=== PATIENT | male | born 1965 | race African-American/Black ===

== ENCOUNTER 2020-04-13 16:37 | Inpatient (IN) | payer OTHER ==
[2020-04-13] MEDS ORDERED: dilTIAZem HCL 125 MG/25 ML - 25 ML VIAL ONE (16:44)
--- NOTE | 2020-04-13 16:55 | PDOC ---
Attending Attestation - Resident Resident Name: Mary Garrett - HPI HPI: 04/13/20 18:18 Pt presents to the ED complaining of palpitations and shortness of breath that began shortly after smoking hookah. Also complaining of chest heaviness. Found to be in rapid afib by EMS, given cardizem IV with resolution of his symptoms. - Physicial Exam PE: 04/13/20 18:24 Agree with resident exam. pateint is alert and oriented x 3 and in no acute distress. CV: irregularly irregular, no murmurs. pulm: CTA b/l abdomen: soft, non tender, non distended without guarding or rebound. - Medical Decision Making 04/13/20 18:25 Pt presents to the ED complaining of palpitations and shortness of breath. Found to be in rapid A fib, rate controlled with cardizem by EMS. Differential includes idiopathic a fib, carbon monoxide poisoning, ACS, less likely anemia. Will check labs including carboxyhemoglobin level, treat with PO cardizem and reassess. Discharge - Discharge Information Problems reviewed: Yes Clinical Impression/Diagnosis: Atrial fibrillation, Lightheaded Condition: Stable - Follow up/Referral - Patient Discharge Instructions - Post Discharge Activity
[2020-04-13] MEDS ORDERED: dilTIAZem HCL 30 MG TABLET PO ONE (17:37)
[2020-04-13] MEDS ORDERED: dilTIAZem HCL 30 MG TABLET ONE (18:27)
[2020-04-13 18:53] LABS: BASO % 0.3 % (0-2.0); EOS % 0.3 % (0-4.5); HEMATOCRIT 48.7 % (35.4-49); HEMOGLOBIN 16.2 GM/dL (11.7-16.9); LYMPH % 21.9 % (8-40); MCH 30.1 pg (25.7-33.7); MCHC 33.2 g/dl (32.0-35.9); MEAN CELL VOLUME 90.6 fl (80-96); MONO % 5.9 % (3.8-10.2); NEUT % 71.6 % (42.8-82.8); PLATELET COUNT 246 K/MM3 (134-434); RBC 5.37 M/mm3 (4.00-5.60); RDW 15.7 % (11.9-15.9); WHITE BLOOD COUNT 12.1 K/mm3 (4.0-10.0)
[2020-04-13 19:01] LABS: INR 1.12 (0.83-1.09); PROTHROMBIN TIME (PATIENT) 13.2 SEC (9.7-13.0)
[2020-04-13 19:04] LABS: ACTIVATED PTT 31.1 SECONDS (25.2-36.5)
--- NOTE | 2020-04-13 19:30 | PDOC ---
*Physical Exam - Vital Signs Last Vital Signs Temp Pulse Resp BP Pulse Ox 98.0 F 74 16 115/75 96 04/13/20 16:49 04/13/20 16:49 04/13/20 16:49 04/13/20 16:49 04/13/20 16:49 - Physical Exam 04/13/20 19:28 Pt signed out to us; Rapid afib; now converted to sinus rhythm/ Pt has a hx of DM and HTN and high cholesterol. He has no chest pain, only palpitations. He was smoking hookah. ED Treatment Course - LABORATORY CBC & Chemistry Diagram: 04/14/20 05:50 04/14/20 05:50 - ADDITIONAL ORDERS Additional order review: Laboratory Results 04/13/20 18:19 PT with INR 13.20 H INR 1.12 H PTT (Actin FS) 31.1 04/13/20 18:19 RBC 5.37 MCV 90.6 MCHC 33.2 RDW 15.7 MPV 9.0 D Neutrophils % 71.6 Lymphocytes % 21.9 Monocytes % 5.9 Eosinophils % 0.3 Basophils % 0.3 - Medications Given in the ED: ED Medications Discontinued Medications Generic Name Dose Route Start Last Admin Trade Name Freq PRN Reason Stop Dose Admin Diltiazem HCl 30 mg 04/13/20 17:37 04/13/20 18:36 Cardizem - PO 04/13/20 17:38 30 mg ONCE ONE Administration Medical Decision Making - Medical Decision Making 04/15/20 05:49 P wll be admitted, as his chiropractic physician agrees that monitoring is prudent Discharge - Discharge Information Problems reviewed: Yes Clinical Impression/Diagnosis: Atrial fibrillation, Lightheaded Condition: Improved Disposition: HOME - Follow up/Referral - Patient Discharge Instructions - Post Discharge Activity
[2020-04-13 19:35] LABS: ALBUMIN 3.7 g/dl (3.4-5.0); BILIRUBIN,TOTAL 0.4 mg/dL (0.2-1); BLOOD UREA NITROGEN 11.4 mg/dL (7-18); CALCIUM 9.4 mg/dL (8.5-10.1); MAGNESIUM 2.3 mg/dL (1.8-2.4); TOT PROT 7.2 g/dl (6.4-8.2)
[2020-04-13] MEDS ORDERED: ACETAMINOPHEN 325 MG TABLET (FP) PO ONE (19:37)
[2020-04-13] MEDS ORDERED: ACETAMINOPHEN 325 MG TABLET (FP) ONE (19:40)
[2020-04-13 19:44] LABS: ARTERIAL BLD GAS O2 SATURATION 94.8 mmHg (95-98); ARTERIAL BLOOD GAS BASE EXCESS -3.8 mmol/L (-2-2); ARTERIAL BLOOD GAS pH 7.396 (7.350-7.450)
--- NOTE | 2020-04-13 19:57 | PDOC ---
History of Present Illness - General Chief Complaint: Palpitations Stated Complaint: Irregular Heart Beat Time Seen by Provider: 04/13/20 16:40 - History of Present Illness Initial Comments: 04/13/20 19:50 HPI: 54 y/o M with hx of HTN, HLD, DM BIBEMS with new onset AFib. Patient reports he was at home smoking hookah and hanging out on his couch and took a nap. Around 3:30pm he woke up and felt LH, palpitations, and SOB. He tried to get up and eat food, but his symptoms persisted and called EMS. He was found to have HR 150s- 180s and cardiac nurse practitioner found AFib with RVR. He was given 25mg diltiazim and HR improved to 80s-90s. His SOB and palp resolved but LH persisted. Here patient's HR was 80s-110s. He denies any ADAM, chest pain, abd pain, n/v, dysuria, diarrhea, recent drug use. Reports he has never has these symptoms before. PMHx: as noted above ROS: as noted SHx: +tobacco use; no alcohol use; no rec drugs Allergies: NKDA ROS: GENERAL/CONSTITUTIONAL: No fever or chills. No weakness. HEAD, EYES, EARS, NOSE AND THROAT: No change in vision. No ear pain or discharge. No sore throat. CARDIOVASCULAR: No chest pain; +shortness of breath RESPIRATORY: No cough, wheezing, or hemoptysis. GASTROINTESTINAL: No nausea, vomiting, diarrhea or constipation. GENITOURINARY: No dysuria, frequency, or change in urination. MUSCULOSKELETAL: No joint or muscle swelling or pain. No neck or back pain. SKIN: No rash NEUROLOGIC: No headache, vertigo, loss of consciousness, or change in strength/sensation. ENDOCRINE: No increased thirst. No abnormal weight change HEMATOLOGIC/LYMPHATIC: No anemia, easy bleeding, or history of blood clots. ALLERGIC/IMMUNOLOGIC: No hives or skin allergy. PE: GENERAL: Awake, alert, and fully oriented, no acute distress HEAD: No signs of trauma, normocephalic, atraumatic EYES: EOMI, sclera anicteric, conjunctiva clear ENT: Auricles normal inspection, hearing grossly normal, nares patent, o ropharynx clear without exudates. Moist mucosa NECK: Normal ROM, no lymphadenopathy LUNGS: No increased work of breathing, symmetrical chest rise, clear to auscultation bilaterally, no wheezes, crackles or rhonchi HEART: tachycardic, irregular rhythm ABDOMEN: Soft, nondistended, nontender. Reducible umbilical hernia. No guarding, no rebound. No masses. No CVAT MUSCULOSKELETAL: FROM NEUROLOGICAL: Cranial nerves II through XII grossly intact. Normal speech, normal gait, no focal sensorimotor deficits SKIN: Warm, Dry, normal turgor, no rashes or lesions noted Past History - Medical History Allergies/Adverse Reactions: Allergies Allergy/AdvReac Type Severity Reaction Status Date / Time No Known Allergies Allergy Verified 12/22/15 12:14 Home Medications: Ambulatory Orders metFORMIN HCL [Glucophage -] 500 mg PO DAILY 07/18/13 COPD: No Diabetes: Yes HTN: Yes Hypercholesterolemia: Yes - Surgical History Orthopedic Surgery: Yes (Back, Bilateral Hips) - Immunization History Immunization Up to Date: Yes - Psycho-Social/Smoking History Smoking Status: No Smoking History: Unknown if ever smoked Have you smoked in the past 12 months: Yes Number of Cigarettes Smoked Daily: 5 'Breaking Loose' booklet given: 07/18/13 - Substance Abuse Hx (Audit-C & DAST Scrn) How often the patient has a drink containing alcohol: Never Score: In Men: 4 or > Positive; In Women: 3 or > Positive: 0 Screen Result (Pos requires Nsg. Audit-10AR): Negative *Physical Exam - Vital Signs Last Vital Signs Temp Pulse Resp BP Pulse Ox 98.0 F 74 16 115/75 96 04/13/20 16:49 04/13/20 16:49 04/13/20 16:49 04/13/20 16:49 04/13/20 16:49 ED Treatment Course - LABORATORY CBC & Chemistry Diagram: 04/13/20 18:19 04/13/20 18:19 - ADDITIONAL ORDERS Additional order review: Laboratory Results 04/13/20 04/13/20 04/13/20 18:30 18:19 18:19 PT with INR INR PTT (Actin FS) Anticoagulation Therapy No Result Required. Puncture Site No Result Required. Patient Temperature No Result Required. ABG pH 7.396 ABG pCO2 33.30 L ABG pO2 73.0 L ABG HCO3 20.0 L ABG O2 Sat (Measured) 94.8 L ABG O2 Content No Result Required. ABG Base Excess -3.8 L Julio C Test No Result Required. Patient On Oxygen No Result Required. O2 Delivery Device No Result Required. Oxygen Flow Rate No Result Required. Vent Mode No Result Required. Vent Rate No Result Required. Mechanical Rate No Result Required. PEEP No Result Required. Pressure Support Vent No Result Required. Sodium 144 Potassium 4.0 Chloride 112 H Carbon Dioxide 23 Anion Gap 9 BUN 11.4 Creatinine 1.0 Est GFR (CKD-EPI)AfAm 99.85 Est GFR (CKD-EPI)NonAf 86.15 Random Glucose 113 H Calcium 9.4 Magnesium 2.3 Total Bilirubin 0.4 AST 20 ALT 34 Alkaline Phosphatase 95 Creatine Kinase 230 Troponin I 0.02 Total Protein 7.2 Albumin 3.7 TSH 1.04 04/13/20 18:19 PT with INR 13.20 H INR 1.12 H PTT (Actin FS) 31.1 Anticoagulation Therapy Puncture Site Patient Temperature ABG pH ABG pCO2 ABG pO2 ABG HCO3 ABG O2 Sat (Measured) ABG O2 Content ABG Base Excess Julio C Test Patient On Oxygen O2 Delivery Device Oxygen Flow Rate Vent Mode Vent Rate Mechanical Rate PEEP Pressure Support Vent Sodium Potassium Chloride Carbon Dioxide Anion Gap BUN Creatinine Est GFR (CKD-EPI)AfAm Est GFR (CKD-EPI)NonAf Random Glucose Calcium Magnesium Total Bilirubin AST ALT Alkaline Phosphatase Creatine Kinase Troponin I Total Protein Albumin TSH 04/13/20 18:19 RBC 5.37 MCV 90.6 MCHC 33.2 RDW 15.7 MPV 9.0 D Neutrophils % 71.6 Lymphocytes % 21.9 Monocytes % 5.9 Eosinophils % 0.3 Basophils % 0.3 - RADIOLOGY Radiology Studies Ordered: Category Date Time Status CXRPORT [CHEST X-RAY PORTABLE*] [RAD] Stat Radiology 04/13/20 16:49 Ordered - Medications Given in the ED: ED Medications Discontinued Medications Generic Name Dose Route Start Last Admin Trade Name Freq PRN Reason Stop Dose Admin Acetaminophen 650 mg 04/13/20 19:37 04/13/20 19:42 Tylenol - PO 04/13/20 19:38 650 mg ONCE ONE Administration Diltiazem HCl 30 mg 04/13/20 17:37 04/13/20 18:36 Cardizem - PO 04/13/20 17:38 30 mg ONCE ONE Administration Medical Decision Making - Medical Decision Making 06/26/20 20:34 54 y/o M with hx of HTN, HLD, DM BIBEMS and found to be in AFib with RVR after waking up with symptoms with SOB, palp, LH. HR 80s-110s, AF. PE with irregular tachycardia. -cbc, cmp, coags, card prof, mg, tsh, abg, carboxyhb, ekg, cxr 04/13/20 20:47 ekg with AFib, no dorothy/d wbc 12, Carboxyhb 21.7 patient placed on NRB remainder of labs wnl 04/13/20 20:[address] Moreno, patient will receive 5mg apixaban patient still reporting LH will admit for tele monitoring and eval by cardio tomorrow morning continue dilt 30mg po q6 04/13/20 20:[address] kwan \ Discharge - Discharge Information Problems reviewed: Yes Clinical Impression/Diagnosis: Atrial fibrillation, Lightheaded Condition: Stable - Admission Yes - Follow up/Referral Referrals: Dede Dwyer [Non Staff, Medical] - - Patient Discharge Instructions - Post Discharge Activity
[2020-04-13] MEDS ORDERED: APIXABAN 5 MG TABLET ONE (20:37)
[2020-04-13] MEDS: APIXABAN 5 MG TABLET PO SCH (21:20)
--- NOTE | 2020-04-13 21:51 | HP ---
Admitting History and Physical - Admission Chief Complaint: Palpitations, lightheadedness, dizziness History of Present Illness: 54 y/o Male with PMhx notable for HTN, HLD, DM II, who was BIB EMS with complaints of palpitations. His symptoms began around 3:00pm at home..he admits had smoked a hookah then took a nap. Upon awakening patient felt dizziness, lightheaded along with palpitations/ dyspnea. He tried to get up and eat food, but his symptoms persisted therefore, he called EMS. He was found to have HR 150s-180s and monitoring tech found AFib with RVR. He was given 25mg diltiazim and HR improved to 80s-90s. He otherwise denies recent fevers, chills, cough, headache, chest pain, abd pain, n/v, or diarrhea. Reports he has never had these symptoms before. PMHx: as noted above ROS: as noted SHx: +tobacco use; no alcohol use; no rec drugs Allergies: NKDA ED course: EKG with AFib, no ST changes WBC=12 12, Carboxyhb 21.7 Patient placed on NRB Remainder of labs WNL History Source: Patient Limitations to Obtaining History: No Limitations - Past Medical History Cardiovascular: Yes: HTN - Smoking History Smoking history: Unknown if ever smoked Have you smoked in the past 12 months: Yes Aproximately how many cigarettes per day: 5 - Alcohol/Substance Use Hx Alcohol Use: No Home Medications - Allergies Allergies/Adverse Reactions: Allergies Allergy/AdvReac Type Severity Reaction Status Date / Time No Known Allergies Allergy Verified 12/22/15 12:14 - Home Medications Home Medications: Ambulatory Orders metFORMIN HCL [Glucophage -] 500 mg PO BID 07/18/13 Cholecalciferol (Vitamin D3) [Vitamin D3 -] 2,000 unit PO DAILY 04/13/20 Lisinopril [Zestril] 2.5 mg PO DAILY 04/13/20 Lovastatin 20 mg PO DAILY 04/13/20 Multivit-Min/FA/Lycopen/Lutein [Centrum Silver Men Tablet] 1 each PO DAILY 04/13/20 Family Medical History Family Hx Coronary Artery Disease: Grandmother (paternal) Review of Systems - Review of Systems Constitutional: reports: Weakness Eyes: reports: No Symptoms HENT: reports: No Symptoms Neck: reports: No Symptoms Cardiovascular: reports: Palpitations Respiratory: reports: No Symptoms Gastrointestinal: reports: No Symptoms Genitourinary: reports: No Symptoms Breasts: reports: No Symptoms Reported Musculoskeletal: reports: No Symptoms Integumentary: reports: No Symptoms Neurological: reports: Dizziness Endocrine: reports: No Symptoms Hematology/Lymphatic: reports: No Symptoms Psychiatric: reports: No Symptoms Physical Examination Vital Signs: Vital Signs Temperature 98.0 F 04/13/20 16:49 Pulse Rate 74 04/13/20 16:49 Respiratory Rate 16 04/13/20 16:49 Blood Pressure 115/75 04/13/20 16:49 O2 Sat by Pulse Oximetry (%) 96 04/13/20 16:49 Constitutional: Yes: Well Nourished, No Distress Eyes: Yes: WNL, Conjunctiva Clear, EOM Intact HENT: Yes: WNL, Atraumatic, Normocephalic Neck: Yes: WNL Cardiovascular: Yes: WNL, Pulse Irregular Respiratory: Yes: WNL, Regular, CTA Bilaterally Gastrointestinal: Yes: WNL, Normal Bowel Sounds, Soft Renal/: Yes: WNL Musculoskeletal: Yes: WNL Extremities: Yes: WNL Edema: No Peripheral Pulses WNL: No Peripheral Pulses: Left Doralis Pedis: 2+, Right Dorsalis Pedis: 2+ Integumentary: Yes: WNL Neurological: Yes: WNL, Alert, Oriented ...Motor Strength: WNL Psychiatric: Yes: WNL, Alert, Oriented Labs: CBC, BMP 04/13/20 18:19 04/13/20 18:19 Imaging - Results Chest X-ray: Pending (No acute infiltrate) Assessment/Plan 54 y/o Male with PMhx notable for HTN, HLD, & DM II, who was BIB EMS with complaints of lightheaded/palpitations, and dyspnea x several hours. Found to have new onset rapid atrial fibrillation. ED course: EKG with AFib, no ST changes WBC=12 12, Carboxyhb 21.7 Patient placed on NRB Remainder of labs wnl Patient was given cardizem 30mg PO, and eliquis 5mg PLAN # New onset atrial fibrillation - Admit to monitored bed - Heart rate improved s/p PO cardizem in ED - Appreciate cardiology input - Now on cardizem 30mg Q6H - Recommend eliquis 5mg BID For AC - Trend cardiac enzymes / lipid panel in AM - TSH ok - Send for 2D ECHO # HTN/hyperlipidemia - BP optimal monitor - Resume home meds lisinopril, & statin # DM II - Hold metformin while in the acute care setting - ISS, monitor accuchecks - check HgbA1c #DVT prophylaxis - Eliquis as noted above Visit type - Emergency Visit Emergency Visit: Yes ED Registration Date: 04/13/20 Care time: The patient presented to the Emergency Department on the above date and was hospitalized for further evaluation of their emergent condition. - New Patient This patient is new to me today: Yes Date on this admission: 04/13/20 - Critical Care Critical Care patient: No
[2020-04-14 00:59] VITALS: BMI 34.3
[2020-04-14] MEDS: dilTIAZem HCL 30 MG TABLET PO SCH ×2 (01:06→06:15)
[2020-04-14] MEDS: INSULIN SLIDING SCALE (NOVOLOG) 1 VIAL SQ SCH ×2 (06:16→13:20)
[2020-04-14] MEDS ORDERED: PT OWN MED DRAWER 7, Y5N ONE (06:44)
[2020-04-14 07:11] LABS: BASO % 0.7 % (0-2.0); EOS % 1.3 % (0-4.5); HEMATOCRIT 45.8 % (35.4-49); LYMPH % 39.1 % (8-40); MCH 29.4 pg (25.7-33.7); MCHC 32.8 g/dl (32.0-35.9); MEAN CELL VOLUME 89.9 fl (80-96); MEAN PLT VOLUME 9.1 fl (7.5-11.1); MONO % 8.8 % (3.8-10.2); NEUT % 50.1 % (42.8-82.8); PLATELET COUNT 213 K/MM3 (134-434); RBC 5.09 M/mm3 (4.00-5.60); RDW 15.3 % (11.9-15.9); WHITE BLOOD COUNT 11.1 K/mm3 (4.0-10.0)
[2020-04-14 07:22] LABS: CALCIUM 8.5 mg/dL (8.5-10.1); CREATININE 0.9 mg/dL (0.55-1.3); POTASSIUM 3.9 mmol/L (3.5-5.1)
--- NOTE | 2020-04-14 07:51 | CON.CARD ---
Consult Consult Specialty:: cardiology Reason for Consultation:: new onset AF - History of Present Illness History of Present Illness: Mr. Armstrong is a 54 yr old man with PMHHypertension, Hyperlipidemia, Diabetes mellitus; office visit for hx chest pain-->Exercise MIBI stress test negative for ischemia in February 2019; ECHO 02/2019: normal LVEF, normal chamber sizes; trace MR and TR, now admitted with palpitations, SOB and lightheadedness after smoking hookah; found to have AF with RVR. No prior diagnosis of AF. - History Source History Provided By: Medical Record - Past Medical History Cardio/Vascular: Yes: HTN Heme/Onc: No: Anemia - Alcohol/Substance Use Hx Alcohol Use: No - Smoking History Smoking history: Unknown if ever smoked Have you smoked in the past 12 months: Yes Aproximately how many cigarettes per day: 5 Home Medications - Allergies Allergies/Adverse Reactions: Allergies Allergy/AdvReac Type Severity Reaction Status Date / Time No Known Allergies Allergy Verified 12/22/15 12:14 - Home Medications Home Medications: Ambulatory Orders metFORMIN HCL [Glucophage -] 500 mg PO BID 07/18/13 Cholecalciferol (Vitamin D3) [Vitamin D3 -] 2,000 unit PO DAILY 04/13/20 Lisinopril [Zestril] 2.5 mg PO DAILY 04/13/20 Lovastatin 20 mg PO DAILY 04/13/20 Multivit-Min/FA/Lycopen/Lutein [Centrum Silver Men Tablet] 1 each PO DAILY 04/13/20 Vital Signs: Vital Signs Temperature 98 F 04/14/20 06:00 Pulse Rate 55 L 04/14/20 06:00 Respiratory Rate 20 04/14/20 06:00 Blood Pressure 100/64 04/14/20 06:00 O2 Sat by Pulse Oximetry (%) 97 04/14/20 01:03 - Other Data Labs, Other Data: CBC, BMP 04/14/20 05:50 INR, PTT INR 1.12 (0.83-1.09) H 04/13/20 18:19 Troponin, BNP 04/13/20 04/13/20 18:19 22:40 Troponin I 0.02 0.03 Troponin, BNP 04/13/20 04/13/20 18:19 22:40 Troponin I 0.02 0.03 Assessment/Plan New onset AF (with accompanying SOB and lightheadedness after smoking hookah) HTN DM HLD stress MIBI negative for ischemia 03/06. ECHO normal LVEF, normal chamber sizes 03/06 Plan: HR controlled with diltiazem; change to long-acting agent. On apixaban 5 mg bid f/u TSH Serial TNi (initial is 0.02). COVID pending
[2020-04-14 08:38] VITALS: BP 105/59; PULSE 75; TEMP 98.6
[2020-04-14] MEDS ORDERED: PATIENT'S OWN MEDICATION (NON-FORMULARY) (Multivit-Min/Fa/Lycopen/Lutein [Centrum Silver M PO SCH (10:00)
[2020-04-14] MEDS ORDERED: LISINOPRIL 5 MG TABLET (FP) PO SCH (10:00)
[2020-04-14] MEDS ORDERED: CHOLECALCIFEROL (VIT D3) 1,000 UNIT (25 MCG) TABLET PO SCH (10:00)
[2020-04-14] MEDS ORDERED: PATIENT'S OWN MEDICATION (NON-FORMULARY) (Lisinopril [Zestril] 2.5 MG) PO SCH (10:00)
[2020-04-14] MEDS ORDERED: MULTIVITAMINS (DAILY MVI) TABLET (FP) PO SCH (10:00)
[2020-04-14] MEDS ORDERED: PATIENT'S OWN MEDICATION (NON-FORMULARY) (Lovastatin [Lovastatin] 20 MG) PO SCH (10:00)
[2020-04-14] MEDS: APIXABAN 5 MG TABLET PO SCH (10:03)
[2020-04-14] MEDS ORDERED: metoPROLOL SUCCINATE 25 MG TAB.SR.24H (FP) PO SCH (12:00)
--- NOTE | 2020-04-14 12:01 | PN ---
Progress Note, Physician Chief Complaint: Pt A&Ox3; asymptomatic. History of Present Illness: Mr. Armstrong is a 54 yr old black man with PMH Hypertension, Hyperlipidemia, Diabetes mellitus; office visit for hx chest pain-->Exercise MIBI stress test negative for ischemia in February 2019; ECHO 02/2019: normal LVEF, normal chamber sizes; trace MR and TR, now admitted with palpitations, SOB and lightheadedness after smoking hookah; found to have AF with RVR. No prior diagnosis of AF. Denies chest pain. 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 - Current Medication List Current Medications: Active Medications Apixaban (Eliquis -) 5 mg PO BID [facility] Last Admin: 04/14/20 10:03 Dose: 5 mg Documented by: Atorvastatin Calcium (Lipitor -) 10 mg PO [facility] Cholecalciferol (Vitamin D3 -) 2,000 unit PO DAILY [facility] Last Admin: 04/14/20 10:03 Dose: 2,000 unit Documented by: Insulin Aspart (Novolog Vial Sliding Scale -) 1 vial SQ [facility]; Protocol Last Admin: 04/14/20 06:16 Dose: Not Given Documented by: Lisinopril (Prinivil) 2.5 mg PO DAILY [facility] Last Admin: 04/14/20 10:02 Dose: 2.5 mg Documented by: Metoprolol Succinate (Toprol Xl -) 12.5 mg PO DAILY [facility] Multivitamins/Minerals/Vitamin C (Tab-A-Vit -) 1 tab PO DAILY [facility] Last Admin: 04/14/20 10:02 Dose: 1 tab Documented by: - Objective Vital Signs: Vital Signs Temperature 98.6 F 04/14/20 08:34 Pulse Rate 75 04/14/20 08:34 Respiratory Rate 20 04/14/20 08:34 Blood Pressure 105/59 L 04/14/20 08:34 O2 Sat by Pulse Oximetry (%) 97 04/14/20 08:34 Constitutional: Yes: No Distress, Obese Eyes: Yes: WNL HENT: Yes: WNL Neck: Yes: WNL Cardiovascular: Yes: Regular Rate and Rhythm, S1, S2 Respiratory: Yes: WNL Gastrointestinal: Yes: WNL ...Rectal Exam: Yes: Deferred Genitourinary: No: Anuria Breast(s): Yes: WNL Musculoskeletal: Yes: WNL Extremities: Yes: WNL Edema: No Peripheral Pulses WNL: Yes Integumentary: Yes: WNL Neurological: Yes: WNL ...Motor Strength: WNL Psychiatric: Yes: WNL Labs: CBC, BMP 04/14/20 05:50 04/14/20 05:50 INR, PTT INR 1.12 (0.83-1.09) H 04/13/20 18:19 Abnormal Lab Results 04/13/20 04/13/20 04/13/20 18:19 18:19 18:19 WBC 12.1 H Absolute Neuts (auto) 8.7 H PT with INR 13.20 H INR 1.12 H ABG pCO2 ABG pO2 ABG HCO3 ABG O2 Sat (Measured) ABG Base Excess Carboxyhemoglobin Chloride 112 H Anion Gap Random Glucose 113 H HDL Cholesterol 04/13/20 04/13/20 04/14/20 18:30 18:30 05:50 WBC 11.1 H Absolute Neuts (auto) PT with INR INR ABG pCO2 33.30 L ABG pO2 73.0 L ABG HCO3 20.0 L ABG O2 Sat (Measured) 94.8 L ABG Base Excess -3.8 L Carboxyhemoglobin 21.7 H* Chloride Anion Gap Random Glucose HDL Cholesterol 04/14/20 05:50 WBC Absolute Neuts (auto) PT with INR INR ABG pCO2 ABG pO2 ABG HCO3 ABG O2 Sat (Measured) ABG Base Excess Carboxyhemoglobin Chloride 109 H Anion Gap 7 L Random Glucose HDL Cholesterol 28 L - ....Imaging Chest X-ray: Image Reviewed EKG: Image Reviewed Assessment/Plan New onset AF (with accompanying SOB and lightheadedness after smoking hookah) HTN DM HLD stress MIBI negative for ischemia 03/06. ECHO normal LVEF, normal chamber sizes 03/06 Plan: Pt denies hx excess caffeine; denies other stimulants; no cocaine. HR controlled with diltiazem; periods of sinus bradycardia. Will change from diltiazem to low-dose metoprolol ER 12.5 mg daily (pt denies hx asthma). On apixaban 5 mg bid TSH WNL. TNI 0.02-->0.03-->0.02 EKG: sinus bradycardia; T wave changes: consider lateral ischemia (EKG 2019 had NSR with nonspecific T wave changes; pt had stress MIBI 03/06 negative for ischemia; normal LVEF). COVID pending From cardiac standpoint, if pt tolerates metoprolol, he may be discharged and followed as outpatient by Dr. Michel.
--- NOTE | 2020-04-14 13:36 | DS ---
Physical Exam: SUBJECTIVE: Patient seen and examined OBJECTIVE: Vital Signs Period Temp Pulse Resp BP Sys/Mark Pulse Ox Last 24 Hr 97.6 F-98.6 F 55-75 16-20 100-115/59-75 96-97 PHYSICAL EXAM GENERAL: The patient is awake, alert, and fully oriented, in no acute distress. HEAD: Normal with no signs of trauma. EYES: PERRL, extraocular movements intact, sclera anicteric, conjunctiva clear. ENT: Ears normal, nares patent, oropharynx clear without exudates, moist mucous membranes. NECK: Trachea midline, full range of motion, supple. LUNGS: Breath sounds equal, clear to auscultation bilaterally, no wheezes, no crackles, no accessory muscle use. HEART: Regular rate and rhythm, S1, S2 without murmur, rub or gallop. ABDOMEN: Soft, nontender, nondistended, normoactive bowel sounds, no guarding, no rebound, no hepatosplenomegaly, no masses. EXTREMITIES: 2+ pulses, warm, well-perfused, no edema. NEUROLOGICAL: Cranial nerves II through XII grossly intact. Normal speech, gait not observed. PSYCH: Normal mood, normal affect. SKIN: Warm, dry, normal turgor, no rashes or lesions noted. LABS Laboratory Results - last 24 hr 04/13/20 04/13/20 04/13/20 18:19 18:19 18:19 WBC 12.1 H RBC 5.37 Hgb 16.2 Hct 48.7 MCV 90.6 MCH 30.1 MCHC 33.2 RDW 15.7 Plt Count 246 MPV 9.0 D Absolute Neuts (auto) 8.7 H Neutrophils % 71.6 Lymphocytes % 21.9 Monocytes % 5.9 Eosinophils % 0.3 Basophils % 0.3 Nucleated RBC % 0 PT with INR 13.20 H INR 1.12 H PTT (Actin FS) 31.1 Anticoagulation Therapy Puncture Site Patient Temperature ABG pH ABG pCO2 ABG pO2 ABG HCO3 ABG O2 Sat (Measured) ABG O2 Content ABG Base Excess Julio C Test Carboxyhemoglobin Patient On Oxygen O2 Delivery Device Oxygen Flow Rate Vent Mode Vent Rate Mechanical Rate PEEP Pressure Support Vent Sodium 144 Potassium 4.0 Chloride 112 H Carbon Dioxide 23 Anion Gap 9 BUN 11.4 Creatinine 1.0 Est GFR (CKD-EPI)AfAm 99.85 Est GFR (CKD-EPI)NonAf 86.15 POC Glucometer Random Glucose 113 H Calcium 9.4 Magnesium 2.3 Total Bilirubin 0.4 AST 20 ALT 34 Alkaline Phosphatase 95 Creatine Kinase 230 Creatine Kinase Index 1.1 CK-MB (CK-2) 2.7 Troponin I 0.02 Total Protein 7.2 Albumin 3.7 Triglycerides Cholesterol Total LDL Cholesterol HDL Cholesterol TSH 04/13/20 04/13/20 04/13/20 18:19 18:30 18:30 WBC RBC Hgb Hct MCV MCH MCHC RDW Plt Count MPV Absolute Neuts (auto) Neutrophils % Lymphocytes % Monocytes % Eosinophils % Basophils % Nucleated RBC % PT with INR INR PTT (Actin FS) Anticoagulation Therapy No Result Required. Puncture Site No Result Required. Patient Temperature No Result Required. ABG pH 7.396 ABG pCO2 33.30 L ABG pO2 73.0 L ABG HCO3 20.0 L ABG O2 Sat (Measured) 94.8 L ABG O2 Content No Result Required. ABG Base Excess -3.8 L Julio C Test No Result Required. Carboxyhemoglobin 21.7 H* Patient On Oxygen No Result Required. O2 Delivery Device No Result Required. Oxygen Flow Rate No Result Required. Vent Mode No Result Required. Vent Rate No Result Required. Mechanical Rate No Result Required. PEEP No Result Required. Pressure Support Vent No Result Required. Sodium Potassium Chloride Carbon Dioxide Anion Gap BUN Creatinine Est GFR (CKD-EPI)AfAm Est GFR (CKD-EPI)NonAf POC Glucometer Random Glucose Calcium Magnesium Total Bilirubin AST ALT Alkaline Phosphatase Creatine Kinase Creatine Kinase Index CK-MB (CK-2) Troponin I Total Protein Albumin Triglycerides Cholesterol Total LDL Cholesterol HDL Cholesterol TSH 1.04 04/13/20 04/14/20 04/14/20 22:40 05:50 05:50 WBC 11.1 H RBC 5.09 Hgb 15.0 Hct 45.8 MCV 89.9 MCH 29.4 MCHC 32.8 RDW 15.3 Plt Count 213 MPV 9.1 Absolute Neuts (auto) 5.5 Neutrophils % 50.1 D Lymphocytes % 39.1 D Monocytes % 8.8 Eosinophils % 1.3 D Basophils % 0.7 Nucleated RBC % 0 PT with INR INR PTT (Actin FS) Anticoagulation Therapy Puncture Site Patient Temperature ABG pH ABG pCO2 ABG pO2 ABG HCO3 ABG O2 Sat (Measured) ABG O2 Content ABG Base Excess Julio C Test Carboxyhemoglobin Patient On Oxygen O2 Delivery Device Oxygen Flow Rate Vent Mode Vent Rate Mechanical Rate PEEP Pressure Support Vent Sodium 141 Potassium 3.9 Chloride 109 H Carbon Dioxide 25 Anion Gap 7 L BUN 13.0 Creatinine 0.9 Est GFR (CKD-EPI)AfAm 113.41 Est GFR (CKD-EPI)NonAf 97.85 POC Glucometer Random Glucose 91 Calcium 8.5 Magnesium Total Bilirubin AST ALT Alkaline Phosphatase Creatine Kinase 202 Creatine Kinase Index 1.2 CK-MB (CK-2) 2.6 Troponin I 0.03 0.02 Total Protein Albumin Triglycerides 85 Cholesterol 134 Total LDL Cholesterol 84 HDL Cholesterol 28 L TSH 04/14/20 06:14 WBC RBC Hgb Hct MCV MCH MCHC RDW Plt Count MPV Absolute Neuts (auto) Neutrophils % Lymphocytes % Monocytes % Eosinophils % Basophils % Nucleated RBC % PT with INR INR PTT (Actin FS) Anticoagulation Therapy Puncture Site Patient Temperature ABG pH ABG pCO2 ABG pO2 ABG HCO3 ABG O2 Sat (Measured) ABG O2 Content ABG Base Excess Julio C Test Carboxyhemoglobin Patient On Oxygen O2 Delivery Device Oxygen Flow Rate Vent Mode Vent Rate Mechanical Rate PEEP Pressure Support Vent Sodium Potassium Chloride Carbon Dioxide Anion Gap BUN Creatinine Est GFR (CKD-EPI)AfAm Est GFR (CKD-EPI)NonAf POC Glucometer 103 Random Glucose Calcium Magnesium Total Bilirubin AST ALT Alkaline Phosphatase Creatine Kinase Creatine Kinase Index CK-MB (CK-2) Troponin I Total Protein Albumin Triglycerides Cholesterol Total LDL Cholesterol HDL Cholesterol TSH HOSPITAL COURSE: Date of Admission:04/13/20 Date of Discharge: 04/14/20 Discharge Summary Problems reviewed: Yes Reason For Visit: LIGHTHEADEDNESS,ATRIAL FIBRILIATION Current Active Problems Atrial fibrillation (Acute) Lightheaded (Acute) Condition: Improved - Instructions Diet, Activity, Other Instructions: You presented to the hospital due to shortness of breath and a rapid heart rate. You were found to have an irregular heart beat called Atrial Fibrillation. You have been started on 2 new medications: -Eliquis 5 mg TWICE per day -Metoprolol 12.5 mg Daily Please follow up with your Cardiology Dr Michel in 1 week. You were also found to have some abnormality with one of the bones in your left arm on imaging. Please follow up this up with your primary care doctor. You were tested for COVID-19. Results are pending. You will be notified if your results are positive. Please follow up with your primary care doctor as well in 1 week. Please return to the emergency department immediately if you begin to experience lightheadedness, chest pain, shortness of breath, or any other abnormal symptoms. Referrals: Isaías Michel MD [Staff Physician] - Disposition: HOME - Home Medications Comprehensive Discharge Medication List: Ambulatory Orders metFORMIN HCL [Glucophage -] 500 mg PO BID 07/18/13 Cholecalciferol (Vitamin D3) [Vitamin D -] 2,000 unit PO DAILY 04/13/20 Lisinopril [Zestril] 2.5 mg PO DAILY 04/13/20 Lovastatin 20 mg PO DAILY 04/13/20 Multivit-Min/FA/Lycopen/Lutein [Centrum Silver Men Tablet] 1 each PO DAILY 04/13/20 Apixaban [Eliquis -] 5 mg PO BID #60 tablet 04/14/20 Metoprolol Succinate [Toprol XL -] 12.5 mg PO DAILY #30 tab.sr.24h 04/14/20 ATTENDING PHYSICIAN STATEMENT I saw and evaluated the patient. I reviewed the resident's note and discussed the case with the resident. I agree with the resident's findings and plan as documented. SUBJECTIVE: OBJECTIVE: ASSESSMENT AND PLAN:
--- NOTE | 2020-04-14 13:47 | EKG ---
Test Reason : Blood Pressure : / mmHG Vent. Rate : 059 BPM Atrial Rate : 059 BPM P-R Int : 172 ms QRS Dur : 088 ms QT Int : 426 ms P-R-T Axes : 035 -25 088 degrees QTc Int : 421 ms SINUS BRADYCARDIA T WAVE ABNORMALITY, CONSIDER ANTEROLATERAL ISCHEMIA ABNORMAL ECG Confirmed by MD DANYEL, JENNA ([id number]) on 04/14/2020 1:47:11 PM Referred By: Stephanie PARDO Confirmed By:JENNA MONTAÑO MD
--- NOTE | 2020-04-14 14:01 | EKG ---
Test Reason : Blood Pressure : / mmHG Vent. Rate : 095 BPM Atrial Rate : 187 BPM P-R Int : 000 ms QRS Dur : 086 ms QT Int : 368 ms P-R-T Axes : 000 -20 071 degrees QTc Int : 462 ms ATRIAL FIBRILLATION WITH PREMATURE VENTRICULAR OR ABERRANTLY CONDUCTED COMPLEXES INCOMPLETE RBBB POSSIBLE SEPTAL INFARCT NONSPECIFIC T WAVE ABNORMALITY PROLONGED QT ABNORMAL ECG Confirmed by MD MONTAÑO MOYSES ([id number]) on 04/14/2020 2:01:03 PM Referred By: Confirmed By:JENNA MONTAÑO MD
--- NOTE | 2020-04-14 14:03 | DS ---
Physical Exam: SUBJECTIVE: Patient seen and examined at bedside. Resting comfortably. OBJECTIVE: Vital Signs Period Temp Pulse Resp BP Sys/Mark Pulse Ox Last 24 Hr 97.6 F-98.6 F 55-75 16-20 100-115/59-75 96-97 PHYSICAL EXAM GENERAL: NAD HEAD: Normal with no signs of trauma. EYES: EOMI ENT: MMM NECK: Trachea midline, full range of motion, supple. LUNGS: CTAB HEART: RRR S1S2. No MRG. ABDOMEN: Soft, NDNT EXTREMITIES: No Significant edema PSYCH: Normal mood, normal affect. LABS Laboratory Results - last 24 hr 04/13/20 04/13/20 04/13/20 18:19 18:19 18:19 WBC 12.1 H RBC 5.37 Hgb 16.2 Hct 48.7 MCV 90.6 MCH 30.1 MCHC 33.2 RDW 15.7 Plt Count 246 MPV 9.0 D Absolute Neuts (auto) 8.7 H Neutrophils % 71.6 Lymphocytes % 21.9 Monocytes % 5.9 Eosinophils % 0.3 Basophils % 0.3 Nucleated RBC % 0 PT with INR 13.20 H INR 1.12 H PTT (Actin FS) 31.1 Anticoagulation Therapy Puncture Site Patient Temperature ABG pH ABG pCO2 ABG pO2 ABG HCO3 ABG O2 Sat (Measured) ABG O2 Content ABG Base Excess Julio C Test Carboxyhemoglobin Patient On Oxygen O2 Delivery Device Oxygen Flow Rate Vent Mode Vent Rate Mechanical Rate PEEP Pressure Support Vent Sodium 144 Potassium 4.0 Chloride 112 H Carbon Dioxide 23 Anion Gap 9 BUN 11.4 Creatinine 1.0 Est GFR (CKD-EPI)AfAm 99.85 Est GFR (CKD-EPI)NonAf 86.15 POC Glucometer Random Glucose 113 H Calcium 9.4 Magnesium 2.3 Total Bilirubin 0.4 AST 20 ALT 34 Alkaline Phosphatase 95 Creatine Kinase 230 Creatine Kinase Index 1.1 CK-MB (CK-2) 2.7 Troponin I 0.02 Total Protein 7.2 Albumin 3.7 Triglycerides Cholesterol Total LDL Cholesterol HDL Cholesterol TSH 04/13/20 04/13/20 04/13/20 18:19 18:30 18:30 WBC RBC Hgb Hct MCV MCH MCHC RDW Plt Count MPV Absolute Neuts (auto) Neutrophils % Lymphocytes % Monocytes % Eosinophils % Basophils % Nucleated RBC % PT with INR INR PTT (Actin FS) Anticoagulation Therapy No Result Required. Puncture Site No Result Required. Patient Temperature No Result Required. ABG pH 7.396 ABG pCO2 33.30 L ABG pO2 73.0 L ABG HCO3 20.0 L ABG O2 Sat (Measured) 94.8 L ABG O2 Content No Result Required. ABG Base Excess -3.8 L Julio C Test No Result Required. Carboxyhemoglobin 21.7 H* Patient On Oxygen No Result Required. O2 Delivery Device No Result Required. Oxygen Flow Rate No Result Required. Vent Mode No Result Required. Vent Rate No Result Required. Mechanical Rate No Result Required. PEEP No Result Required. Pressure Support Vent No Result Required. Sodium Potassium Chloride Carbon Dioxide Anion Gap BUN Creatinine Est GFR (CKD-EPI)AfAm Est GFR (CKD-EPI)NonAf POC Glucometer Random Glucose Calcium Magnesium Total Bilirubin AST ALT Alkaline Phosphatase Creatine Kinase Creatine Kinase Index CK-MB (CK-2) Troponin I Total Protein Albumin Triglycerides Cholesterol Total LDL Cholesterol HDL Cholesterol TSH 1.04 04/13/20 04/14/20 04/14/20 22:40 05:50 05:50 WBC 11.1 H RBC 5.09 Hgb 15.0 Hct 45.8 MCV 89.9 MCH 29.4 MCHC 32.8 RDW 15.3 Plt Count 213 MPV 9.1 Absolute Neuts (auto) 5.5 Neutrophils % 50.1 D Lymphocytes % 39.1 D Monocytes % 8.8 Eosinophils % 1.3 D Basophils % 0.7 Nucleated RBC % 0 PT with INR INR PTT (Actin FS) Anticoagulation Therapy Puncture Site Patient Temperature ABG pH ABG pCO2 ABG pO2 ABG HCO3 ABG O2 Sat (Measured) ABG O2 Content ABG Base Excess Julio C Test Carboxyhemoglobin Patient On Oxygen O2 Delivery Device Oxygen Flow Rate Vent Mode Vent Rate Mechanical Rate PEEP Pressure Support Vent Sodium 141 Potassium 3.9 Chloride 109 H Carbon Dioxide 25 Anion Gap 7 L BUN 13.0 Creatinine 0.9 Est GFR (CKD-EPI)AfAm 113.41 Est GFR (CKD-EPI)NonAf 97.85 POC Glucometer Random Glucose 91 Calcium 8.5 Magnesium Total Bilirubin AST ALT Alkaline Phosphatase Creatine Kinase 202 Creatine Kinase Index 1.2 CK-MB (CK-2) 2.6 Troponin I 0.03 0.02 Total Protein Albumin Triglycerides 85 Cholesterol 134 Total LDL Cholesterol 84 HDL Cholesterol 28 L TSH 04/14/20 06:14 WBC RBC Hgb Hct MCV MCH MCHC RDW Plt Count MPV Absolute Neuts (auto) Neutrophils % Lymphocytes % Monocytes % Eosinophils % Basophils % Nucleated RBC % PT with INR INR PTT (Actin FS) Anticoagulation Therapy Puncture Site Patient Temperature ABG pH ABG pCO2 ABG pO2 ABG HCO3 ABG O2 Sat (Measured) ABG O2 Content ABG Base Excess Julio C Test Carboxyhemoglobin Patient On Oxygen O2 Delivery Device Oxygen Flow Rate Vent Mode Vent Rate Mechanical Rate PEEP Pressure Support Vent Sodium Potassium Chloride Carbon Dioxide Anion Gap BUN Creatinine Est GFR (CKD-EPI)AfAm Est GFR (CKD-EPI)NonAf POC Glucometer 103 Random Glucose Calcium Magnesium Total Bilirubin AST ALT Alkaline Phosphatase Creatine Kinase Creatine Kinase Index CK-MB (CK-2) Troponin I Total Protein Albumin Triglycerides Cholesterol Total LDL Cholesterol HDL Cholesterol TSH HOSPITAL COURSE: Date of Admission:04/13/20 54 y/o Male with a significant past medical history notable for HTN, HLD, and DM II, who was BIB EMS with complaints of palpitations. EKG revealed atrial fibrillation with rapid ventricular response with HR 150s-180s. Patient was administered Diltiazem PO and started on Eliquis. Patient's Carboxyhb was 21.7 and patient was placed on a NRB. Patient's Diltiazem was eventually switched to metoprolol succinate 12.5 ER. Cardiology endorsed patient recently underwent a Stress test as well as an echocardiogram as an outpatient. Patient was discharged with Metoprolol 12.5 ER and Eliquis 5 mg PO BID and informed to follow up with Cardiology. Date of Discharge: 04/14/20 Minutes to complete discharge: 35 <Mina Phan - Last Filed: 04/14/20 17:37> Physical Exam: SUBJECTIVE: Patient seen and examined OBJECTIVE: Vital Signs Period Temp Pulse Resp BP Sys/Mark Pulse Ox Last 24 Hr 97.6 F-98.6 F 55-75 20-20 100-105/59-68 97-97 PHYSICAL EXAM GENERAL: The patient is awake, alert, and fully oriented, in no acute distress. HEAD: Normal with no signs of trauma. EYES: PERRL, extraocular movements intact, sclera anicteric, conjunctiva clear. ENT: Ears normal, nares patent, oropharynx clear without exudates, moist mucous membranes. NECK: Trachea midline, full range of motion, supple. LUNGS: Breath sounds equal, clear to auscultation bilaterally, no wheezes, no crackles, no accessory muscle use. HEART: Regular rate and rhythm, S1, S2 without murmur, rub or gallop. ABDOMEN: Soft, nontender, nondistended, normoactive bowel sounds, no guarding, no rebound, no hepatosplenomegaly, no masses. EXTREMITIES: 2+ pulses, warm, well-perfused, no edema. NEUROLOGICAL: Cranial nerves II through XII grossly intact. Normal speech, gait not observed. PSYCH: Normal mood, normal affect. SKIN: Warm, dry, normal turgor, no rashes or lesions noted. LABS Laboratory Results - last 24 hr 04/13/20 04/13/20 04/13/20 18:19 18:19 18:19 WBC 12.1 H RBC 5.37 Hgb 16.2 Hct 48.7 MCV 90.6 MCH 30.1 MCHC 33.2 RDW 15.7 Plt Count 246 MPV 9.0 D Absolute Neuts (auto) 8.7 H Neutrophils % 71.6 Lymphocytes % 21.9 Monocytes % 5.9 Eosinophils % 0.3 Basophils % 0.3 Nucleated RBC % 0 PT with INR 13.20 H INR 1.12 H PTT (Actin FS) 31.1 Anticoagulation Therapy Puncture Site Patient Temperature ABG pH ABG pCO2 ABG pO2 ABG HCO3 ABG O2 Sat (Measured) ABG O2 Content ABG Base Excess Julio C Test Carboxyhemoglobin Patient On Oxygen O2 Delivery Device Oxygen Flow Rate Vent Mode Vent Rate Mechanical Rate PEEP Pressure Support Vent Sodium 144 Potassium 4.0 Chloride 112 H Carbon Dioxide 23 Anion Gap 9 BUN 11.4 Creatinine 1.0 Est GFR (CKD-EPI)AfAm 99.85 Est GFR (CKD-EPI)NonAf 86.15 POC Glucometer Random Glucose 113 H Calcium 9.4 Magnesium 2.3 Total Bilirubin 0.4 AST 20 ALT 34 Alkaline Phosphatase 95 Creatine Kinase 230 Creatine Kinase Index 1.1 CK-MB (CK-2) 2.7 Troponin I 0.02 Total Protein 7.2 Albumin 3.7 Triglycerides Cholesterol Total LDL Cholesterol HDL Cholesterol TSH 04/13/20 04/13/20 04/13/20 18:19 18:30 18:30 WBC RBC Hgb Hct MCV MCH MCHC RDW Plt Count MPV Absolute Neuts (auto) Neutrophils % Lymphocytes % Monocytes % Eosinophils % Basophils % Nucleated RBC % PT with INR INR PTT (Actin FS) Anticoagulation Therapy No Result Required. Puncture Site No Result Required. Patient Temperature No Result Required. ABG pH 7.396 ABG pCO2 33.30 L ABG pO2 73.0 L ABG HCO3 20.0 L ABG O2 Sat (Measured) 94.8 L ABG O2 Content No Result Required. ABG Base Excess -3.8 L Julio C Test No Result Required. Carboxyhemoglobin 21.7 H* Patient On Oxygen No Result Required. O2 Delivery Device No Result Required. Oxygen Flow Rate No Result Required. Vent Mode No Result Required. Vent Rate No Result Required. Mechanical Rate No Result Required. PEEP No Result Required. Pressure Support Vent No Result Required. Sodium Potassium Chloride Carbon Dioxide Anion Gap BUN Creatinine Est GFR (CKD-EPI)AfAm Est GFR (CKD-EPI)NonAf POC Glucometer Random Glucose Calcium Magnesium Total Bilirubin AST ALT Alkaline Phosphatase Creatine Kinase Creatine Kinase Index CK-MB (CK-2) Troponin I Total Protein Albumin Triglycerides Cholesterol Total LDL Cholesterol HDL Cholesterol TSH 1.04 04/13/20 04/14/20 04/14/20 22:40 05:50 05:50 WBC 11.1 H RBC 5.09 Hgb 15.0 Hct 45.8 MCV 89.9 MCH 29.4 MCHC 32.8 RDW 15.3 Plt Count 213 MPV 9.1 Absolute Neuts (auto) 5.5 Neutrophils % 50.1 D Lymphocytes % 39.1 D Monocytes % 8.8 Eosinophils % 1.3 D Basophils % 0.7 Nucleated RBC % 0 PT with INR INR PTT (Actin FS) Anticoagulation Therapy Puncture Site Patient Temperature ABG pH ABG pCO2 ABG pO2 ABG HCO3 ABG O2 Sat (Measured) ABG O2 Content ABG Base Excess Julio C Test Carboxyhemoglobin Patient On Oxygen O2 Delivery Device Oxygen Flow Rate Vent Mode Vent Rate Mechanical Rate PEEP Pressure Support Vent Sodium 141 Potassium 3.9 Chloride 109 H Carbon Dioxide 25 Anion Gap 7 L BUN 13.0 Creatinine 0.9 Est GFR (CKD-EPI)AfAm 113.41 Est GFR (CKD-EPI)NonAf 97.85 POC Glucometer Random Glucose 91 Calcium 8.5 Magnesium Total Bilirubin AST ALT Alkaline Phosphatase Creatine Kinase 202 Creatine Kinase Index 1.2 CK-MB (CK-2) 2.6 Troponin I 0.03 0.02 Total Protein Albumin Triglycerides 85 Cholesterol 134 Total LDL Cholesterol 84 HDL Cholesterol 28 L TSH 04/14/20 06:14 WBC RBC Hgb Hct MCV MCH MCHC RDW Plt Count MPV Absolute Neuts (auto) Neutrophils % Lymphocytes % Monocytes % Eosinophils % Basophils % Nucleated RBC % PT with INR INR PTT (Actin FS) Anticoagulation Therapy Puncture Site Patient Temperature ABG pH ABG pCO2 ABG pO2 ABG HCO3 ABG O2 Sat (Measured) ABG O2 Content ABG Base Excess Julio C Test Carboxyhemoglobin Patient On Oxygen O2 Delivery Device Oxygen Flow Rate Vent Mode Vent Rate Mechanical Rate PEEP Pressure Support Vent Sodium Potassium Chloride Carbon Dioxide Anion Gap BUN Creatinine Est GFR (CKD-EPI)AfAm Est GFR (CKD-EPI)NonAf POC Glucometer 103 Random Glucose Calcium Magnesium Total Bilirubin AST ALT Alkaline Phosphatase Creatine Kinase Creatine Kinase Index CK-MB (CK-2) Troponin I Total Protein Albumin Triglycerides Cholesterol Total LDL Cholesterol HDL Cholesterol TSH HOSPITAL COURSE: Date of Admission:04/13/20 Date of Discharge: 04/14/20 <Jonas Campos - Last Filed: 04/14/20 18:22> Discharge Summary Problems reviewed: Yes Current Active Problems Atrial fibrillation (Acute) Lightheaded (Acute) - Home Medications Comprehensive Discharge Medication List: Ambulatory Orders metFORMIN HCL [Glucophage -] 500 mg PO BID 07/18/13 Cholecalciferol (Vitamin D3) [Vitamin D -] 2,000 unit PO DAILY 04/13/20 Lisinopril [Zestril] 2.5 mg PO DAILY 04/13/20 Lovastatin 20 mg PO DAILY 04/13/20 Multivit-Min/FA/Lycopen/Lutein [Centrum Silver Men Tablet] 1 each PO DAILY 04/13/20 Apixaban [Eliquis -] 5 mg PO BID #60 tablet 04/14/20 Metoprolol Succinate [Toprol XL -] 12.5 mg PO DAILY #30 tab.sr.24h 04/14/20 <Mina Phan - Last Filed: 04/14/20 17:37> - Home Medications Comprehensive Discharge Medication List: Ambulatory Orders metFORMIN HCL [Glucophage -] 500 mg PO BID 07/18/13 Cholecalciferol (Vitamin D3) [Vitamin D -] 2,000 unit PO DAILY 04/13/20 Lisinopril [Zestril] 2.5 mg PO DAILY 04/13/20 Lovastatin 20 mg PO DAILY 04/13/20 Multivit-Min/FA/Lycopen/Lutein [Centrum Silver Men Tablet] 1 each PO DAILY 04/13/20 Apixaban [Eliquis -] 5 mg PO BID #60 tablet 04/14/20 Metoprolol Succinate [Toprol XL -] 12.5 mg PO DAILY #30 tab.sr.24h 04/14/20 <Jonas Campos - Last Filed: 04/14/20 18:22> Reason For Visit: LIGHTHEADEDNESS,ATRIAL FIBRILIATION Condition: Improved - Instructions Diet, Activity, Other Instructions: You presented to the hospital due to shortness of breath and a rapid heart rate. You were found to have an irregular heart beat called Atrial Fibrillation. You have been started on 2 new medications: -Eliquis 5 mg TWICE per day -Metoprolol 12.5 mg Daily Please follow up with your Cardiology Dr Michel in 1 week. You were also found to have some abnormality with one of the bones in your left arm on imaging. Please follow up this up with your primary care doctor. You were tested for COVID-19. Results are pending. You will be notified if your results are positive. Please refrain from smoking as it can cause elevated blood pressure, lung damage, coronary artery disease, and many other negative effects to your health. Please follow up with your primary care doctor as well in 1 week. Please return to the emergency department immediately if you begin to experience lightheadedness, chest pain, shortness of breath, or any other abnormal symptoms. Referrals: Isaías Michel MD [Staff Physician] - Disposition: HOME This patient is new to me today: Yes Date on this admission: 04/14/20 Emergency Visit: Yes ED Registration Date: 04/13/20 Care time: The patient presented to the Emergency Department on the above date and was hospitalized for further evaluation of their emergent condition. Critical Care patient: No - Discharge Referral Referred to [facility] Med P.C[facility] No <Mina Phan - Last Filed: 04/14/20 17:37> ATTENDING PHYSICIAN STATEMENT I saw and evaluated the patient. I reviewed the resident's note and discussed the case with the resident. I agree with the resident's findings and plan as documented. SUBJECTIVE: OBJECTIVE: ASSESSMENT AND PLAN: <Mina Phan - Last Filed: 04/14/20 17:37> ATTENDING PHYSICIAN STATEMENT I saw and evaluated the patient. I reviewed the resident's note and discussed the case with the resident. I agree with the resident's findings and plan as documented. Attending attestation: Patient seen and examined at bedside during my rounds on the morning of his discharge. He has no complaints at this time. Patient had a few episodes of bradycardia on telemetry and was switched from diltiazem to metoprolol. On exam he is alert and awake. On cardiac exam he has a regular rhythm but is bradycardic. Lungs are clear to auscultation bilaterally. Abdomen is soft nontender nondistended. No lower extremity edema.This is a 54-year-old male with a past medical history of hypertension hyperlipidemia and diabetes who presented to the hospital with new onset atrial fibrillation with RVR. The patient was started on Eliquis and diltiazem. Diltiazem was causing bradycardia and the patient has been switched to metoprolol succinate 12.5 mg p.o. twice daily.He will continue on Eliquis as an outpatient. In addition to following up with his primary care doctor the patient will follow-up with Dr. Moreno from cardiology. <Jonas Campos - Last Filed: 04/14/20 18:22>
[2020-04-14] MEDS ORDERED: ATORVASTATIN CA 10 MG TABLET (FP) PO SCH (22:00)
== END 2020-04-14 15:42 | disposition home or self-care (01) | DRG 201 ==
LOC: JER 16:37 → JERBED 20:53 → J4W 04-14 00:13
PROVIDERS: ADMIT Internal Medicine; ATTEND Internal Medicine
DX: I48.91 Unspecified atrial fibrillation (principal); E11.9 Type 2 diabetes mellitus without complications; I10 Essential (primary) hypertension; E78.5 Hyperlipidemia, unspecified; Z79.84 Long term (current) use of oral hypoglycemic drugs; E66.9 Obesity, unspecified; R42 Dizziness and giddiness; Z68.34 Body mass index [BMI] 34.0-34.9, adult
CPT/HCPCS: 36415; 36600; 71045-TC-FY; 80048; 80053; 80061; 82375; 82550; 82553; 82803; 82962; 83721; 83735; 84443; 84484; 85025; 85610; 85730; 93005; 93010; 99285-25; U0003

== ENCOUNTER 2020-08-23 19:39 | Emergency (ER) | payer OTHER ==
--- OUTSIDE RECORDS SUMMARY | 2020-08-23 20:06 | XMS ---
:1965 Author Organization [facility] Care Team Providers Name Role Phone MARY MARKHAM, HATTIE Unavailable MARY MARKHAM, HATTIE Unavailable MARY MARKHAM, HATTIE Unavailable MRAY MARKHAM, HATTIE Unavailable MARY MARKHAM, HATTIE Unavailable MARY MARKHAM, HATTIE Unavailable YAS OTT MD Unavailable YAS OTT MD Unavailable ED STAFF PHYSICIAN, STAFF Unavailable Unavailable PRITI SANCHEZ Unavailable PRITI SANCHEZ Unavailable OYEKOLA PRINCIPAL TECHNICAL SPECIALIST, MOBOLAJI Unavailable OYEKOLA PRINCIPAL TECHNICAL SPECIALIST, MOBOLAJI Unavailable AGYEPONG PRINCIPAL TECHNICAL SPECIALIST, DARYL Unavailable AGYEPONG PRINCIPAL TECHNICAL SPECIALIST, DARYL Unavailable ED STAFF PHYSICIAN, MAHI Unavailable Unavailable Emilie, Osama Unavailable Unavailable Emilie, Osama Unavailable Unavailable Emilie, Osama Unavailable Unavailable Emilie, Osama Unavailable Unavailable Emilie, Osama Unavailable Unavailable Emilie, Osama Unavailable Unavailable Emilie, Osama Unavailable Unavailable Emilie, Osama Unavailable Unavailable Emilie, Osama Unavailable Unavailable Emilie, Osama Unavailable Unavailable Emilie, Osama Unavailable Unavailable Emilie, Osama Unavailable Unavailable Emilie, Osama Unavailable Unavailable Emilie, Osama Unavailable Unavailable Emilie, Osama Unavailable Unavailable Emilei, Osama Unavailable Unavailable Emilie, Osama Unavailable Unavailable JASS PRINCIPAL TECHNICAL SPECIALIST, KEI Unavailable JASS PRINCIPAL TECHNICAL SPECIALIST, KEI Unavailable JASS PRINCIPAL TECHNICAL SPECIALIST, KEI Unavailable Re-disclosure Warning The records that you are about to access may contain information from federally- assisted alcohol or drug abuse programs. If such information is present, then the following federally mandated warning applies: This information has been disclosed to you from records protected by federal confidentiality rules (42 CFR part 2). The federal rules prohibit you from making any further disclosure of this information unless further disclosure is expressly permitted by the written consent of the person to whom it pertains or as otherwise permitted by 42 CFR part 2. A general authorization for the release of medical or other information is NOT sufficient for this purpose. The Federal rules restrict any use of the information to criminally investigate or prosecute any alcohol or drug abuse patient.The records that you are about to access may contain highly sensitive health information, the redisclosure of which is protected by Article 27-F of the [facility] Public Health law. If you continue you may haveaccess to information: Regarding HIV / AIDS; Provided by facilities licensed or operated by the [facility] Office of Mental Health; or Provided by the [facility] Office for People With Developmental Disabilities. If such information is present, then the following [facility] mandated warning applies: This information has been disclosed to you from confidential records which are protected by state law. State law prohibits you from making any further disclosure of this information without the specific written consent of the person to whom it pertains, or as otherwise permitted by law. Any unauthorized further disclosure in violation of state law may result in a fine or long-term sentence or both. A general authorization for the release of medical or other information is NOT sufficient authorization for further disclosure. Allergies and Adverse Reactions Type Description Substance Reaction Status Data Source(s ) Allergy to No Known Allergies No known GREENW AY ([facility] substance allergies [facility] ([facility] ) Allergy to No Known Allergies No known GREENW AY ([facility] substance allergies [facility] ) Encounters Encounter Providers Location Date Indications Data Source(s ) Outpatient<td Attender: Jessica Assess/interventi ASHA WRIGHT ([place] ID="encounterT [facility] 0 on Patient Kvng ypeDescription [facility] 10:30:00 Screened For Neig hborhood ID0">OFFICE AM EDT - [facility] Cent[facility] r) VISIT</td><td> RiskDiabetes [facility] 0 Mellitus [facility] 11:58:56 PRINCIPAL TECHNICAL SPECIALIST</td><td>Yo AM EDT [facility]</td><td >05/30/2020</t d><td><content ID="encounterD iagnosisID0-0" >Diabetes Mellitus</cont ent>, <content ID="encounterD iagnosisID0-1" >Assess/interv ention Patient Screened For Future Fall Risk</content> </td> Assess/intervention Patient Screened For Future Fall Risk Diabetes Mellitus Outpatient<td ID="encounterTypeDescriptionID1">OFFICE Attender: Jessica 04/09/2020 ObesityLeukocytosisDiabetes [place] VISIT</td><td>MOBOLAJI [facility]</td><td>Jessica [facility] 11:00:00 AM Mellitus ([facility] EDT - [facility]ighbor [facility] Center</td><td>04/09/2020</td><td><content PRINCIPAL TECHNICAL SPECIALIST Center 03/20 Health ID="encounterDiagnosisID1-0">Diabetes 12:22:51 PM Center) Mellitus</content>, <content EDT ID="encounterDiagnosisID1-1">Leukocytosis</content>, <content ID="encounterDiagnosisID1-2">Obesity</content></td> Obesity Leukocytosis Diabetes Mellitus Outpatient<td Attender: Jessica 03/28/2020 [place] ID="encounterTypeDescriptionID2">*OUTREACH*</td><td>[facility] 04:56:00 PM ([facility]</td><td>[facility] ED T - [facility] Center</td><td>03/28/2020</td><td></td> [facility] 020 Health 11:59:00 PM Center) EDT Outpatient<td ID="encounterTypeDescriptionID3">OFFICE Attender: Jessica 03/26/2020 Ayala CEJA VISIT</td><td>[facility]</td><td>[facility] 11:00:00 AM v ([facility]</td><td>03/26/2020</td><td><content [facility] EDT - e Neighborhood ID="encounterDiagnosisID3-0">Diabetes Mellitus</content>, PRINCIPAL TECHNICAL SPECIALIST Center 03/26/2020 r Health <content 12:22:28 PM w Center) ID="encounterDiagnosisID3-1">Overweight</content></td> EDT e i g h t O v e r w e i g h t D i a b e t e s M e l l i t u s D i a b e t e s M e l l i t u s Overweight Overweight Diabetes Mellitus Diabetes Mellitus Outpatient<td Attender: Jessica 12/21/2019 [place] ID="encounterTypeDescriptionID4">EKG</td><td>[facility] 04:00:00 PM (Vielka OTT MD</td><td>[facility] NAMRATA MARKHAM Health EST - Neighborhood Center</td><td>12/21/2019</td><td></td> Center [address] [place] [address] 09:57:38 AM Center) EST Outpatient<td Attender: Jessica 12/21/2019 O [place] ID="encounterTypeDescriptionID5">OFFICE [facility] 03:30:0 0 PM b (Vielka Calderon VISIT</td><td>[facility] JASS FNP</td><td>[facility] EST - e [facility] PRINCIPAL TECHNICAL SPECIALIST Center 12/21/2019 Health Center</td><td>12/21/2019</td><td><content 04:3 4:31 PM i Center) ID="encounterDiagnosisID5-0">Hypertension EST t (systemic)</content>, <content y ID="encounterDiagnosisID5-1">Diabetes C Mellitus</content>, <content e ID="encounterDiagnosisID5-2">Cervicalgia</content>, r <content v ID="encounterDiagnosisID5-3">Obesity</content></td> i c a l g i a O b e s i t y C e r v i c a l g i a D i a b e t e s M e l l i t u s D i a b e t e s M e l l i t u s H y p e r t e n s i o n ( s y s t e m i c ) H y p e r t e n s i o n ( s y s t e m i c ) Obesity Cervicalgia Obesity Cervicalgia Diabetes Mellitus Diabetes Mellitus Hypertension (systemic) Hypertension (systemic) Outpatient<td Attender: Jessica 12/08/2019 [place] ID="encounterTypeDescriptionID6">*[facility] 09:55:0 0 AM (Vielka Calderon Update*</td><td>[facility] EST - Neighborhood MD</td><td>[facility] Center 12/08/2019 Health Center</td><td>12/08/2019</td><td></td> 11:59:0 0 PM Center) EST Outpatient<td Attender: Jessica 11/09/2019 [place] ID="encounterTypeDescriptionID7">*No [facility] 01:57:00 P M ([place] [facility]*</td><td>[facility] EST - Neighborhood PRINCIPAL TECHNICAL SPECIALIST</td><td>[facility] 11/09/2019 Health Center</td><td>11/09/2019</td><td></td> 11:59:0 0 PM Center) EST Emergency Attender: H 11/06/2019 [facility] ED 12:18:00 PM Medical STAFF EST - Center PHYSICIANA 11/06/2019 ttender: 03:32:00 PM STAFF ED EST STAFF PHYSICIANA dmitter: MAHI ED STAFF PHYSICIANR eferrer: STAFF ED STAFF PHYSICIAN Patient discharged. Inpatient Attender: Capri Clarke-HAL5 11/03/2019 05:40:00 [facility] STAFF ED PM EST - 11/05/2019 Medical Center STAFF PHYSICIANAdmitter: 01:55:00 PM EST Capri Parkereferrer: Capri Phan Patient discharged. Outpatient<td Attender: Jessica 11/03/2019 ObesityCarbuncle in th e [place] ID="encounterTypeDescriptionID8">OFFICE [facility] 03:30:0 0 PM Left ([place] VISIT</td><td>[facility]</td><td>[facility] EST - AxillaObesityCarbuflle [facility] Center 11/03/2019 in the Left Health Center</td><td>11/03/2019</td><td><content 03:5 4:36 PM AxillaObetyCarbuncle Center) ID="encounterDiagnosisID8-0">Carbuncle in the Left EST in the Left Axilla Axilla</content>, <content ID="encounterDiagnosisID8-1">Obesity</content></td> Obesity Carbuncle in the Left Axilla Obesity Carbuncle in the Left Axilla Obesity Carbuncle in the Left Axilla Outpatient<td Attender: Jessica 07/07/2019 ObesityObesityObesityO besity [place] ID="encounterTypeDescriptionID9">OFFICE [facility] 01:30:0 0 PM (Vielka Calderon VISIT</td><td[facility]td><td>[facility] 07/07/2019 Health Center</td><td>07/07/2019</td><td><content 01:5 4:36 PM Center) ID="encounterDiagnosisID9-0">Obesity</content></td> EDT Obesity Obesity Obesity Obesity Outpatient<td Attender: Jessica 06/29/2019 [place] ID="dw[id number]">EKG</td><td>[facility] 11:30:00 AM (Vielka OTT MD</td><td>[facility] NAMRATA MARKHAM Health EDT [facility]</td><td>06/29/2019</td><td></td> Center [address] [place] [address] 04:23:55 PM Center) EDT Outpatient<td Attender: Jessica 06/29/2019 O MARCIAL ID="ij[id number]">COMPLETE PHYSICAL [facility] 11:00:00 AM b (Vielka Calderon EXAM</td><td[facility]td><td>[facility] EDT [facility] 06/29/2019 Health Center</td><td>06/29/2019</td><td><content 12:0 3:07 PM [facility]) ID="stvqawlrjZimjfvlsvXJ76-2">Routine History and EDT t Physical Adult (18 - 64 Yrs)</content>, <content y ID="hjpluikrwKkeobjtbkWN99-3">Chest Pain</content>, R <content o ID="dgqhyosziAaxlgmtofVI12-0">Palpitations</content>, u <content ID="dlgjbctopEcslegdxyQK23-0">Routine t Pre-employment Screening Examination</content>, i <content n ID="oiqwmuryeEuixahifbLD46-8">Obesity</content></td> e P r e - e m p l o y m e n t S c r e e n i n g E x a m i n a t i o n P a l p i t a t i o n s C h e s t P a i n R o u t i n e H i s t o r y a n d P h y s i c a l A d u l t ( 8 4 Y r s ) O b e s i t y R o u t i n e P r e - e m p l o y m e n t S c r e e n i n g E x a m i n a t i o n P a l p i t a t i o n s C h e s t P a i n R o u t i n e H i s t o r y a n d P h y s i c a l A d u l t ( 8 - 4 Y r s ) O b e s i t y R o u t i n e P r e - e m p l o y m e n t S c r e e n i n g E x a m i n a t i o n P a l p i t a t i o n s C h e s t P a i n R o u t i n e H i s t o r y a n d P h y s i c a l A d u l t ( 8 - 4 Y r s ) O b e s i t y R o u t i n e P r e - e m p l o y m e n t S c r e e n i n g E x a m i n a t i o n P a l p i t a t i o n s C h e s t P a i n R o u t i n e H i s t o r y a n d P h y s i c a l A d u l t ( 1 8 - 6 4 Y r s ) O b e s i t y R o u t i n e P r e - e m p l o y m e n t S c r e e n i n g E x a m i n a t i o n P a l p i t a t i o n s C h e s t P a i n R o u t i n e H i s t o r y a n d P h y s i c a l A d u l t ( 1 8 - 6 4 Y r s ) Obesity Routine Pre-employment Screening Examina tion Palpitations Chest Pain Routine History and Physical Adult (18 - 64 Yrs) Obesity Routine Pre-employment Screening Examina tion Palpitations Chest Pain Routine History and Physical Adult (18 - 64 Yrs) Obesity Routine Pre-employment Screening Examina tion Palpitations Chest Pain Routine History and Physical Adult (18 - 64 Yrs) Obesity Routine Pre-employment Screening Examina tion Palpitations Chest Pain Routine History and Physical Adult (18 - 64 Yrs) Obesity Routine Pre-employment Screening Examina tion Palpitations Chest Pain Routine History and Physical Adult (18 - 64 Yrs) Medications Medication Brand Start Product Dose Route Administrative Pharmacy [facility] Indications Reaction Description Data Name Date Form Instructions Instructions Source(s) Lisinopril Lisino UNIT 1 active Lisinopr il MARCIAL 2.5 MG Oral pril 2019 ([place] Tablet 2.5MG 12:00: Kvng Lisinopril Oral 00 AM Neighbor ho 2.5MG Oral Tablet EDT od [facility] Tablet Center) Metformin metFOR UNIT 1 active metFORMIN MARCIAL hydrochlori MIN 2019 HCl ([place] de 500 MG HCl 12:00: Kvng Oral Tablet 500MG 00 [facility] EDT od [facility] HCl 500MG Tablet Center) Oral Tablet Lancets Lancet UNIT 1 active Lancets Thi n MARCIAL Thin s Thin 2019 ([place] Miscellaneo Miscel 12:00: Fabio on us laneou 00 AM Neighborho s EDT od Health Center) Lovastatin Lovast UNIT 1 active Lovastat in MARCIAL 20 MG Oral atin 2019 ([place] Tablet 20MG 12:00: Kvng Lovastatin Oral 00 AM Neighbor ho 20MG Oral Tablet EDT [facility] Center) Blood Blood 03/26/ UNIT 1 active Blood [place] Glucose Glucos 2019 Glucose Test (M ount Test In e Test 12:00: Kvng Vitro Strip [facility]) Lovastatin Lovast 03/26/ UNIT 1 suspend Lovasta tin MARCIAL 20 MG Oral atin 2019 ed ([place] Tablet 20MG 12:00: Kvng Lovastatin Oral 00 AM Neighbor ho 20MG Oral Tablet EDT od Heal h Tablet Center) Metformin metFOR UNIT 1 suspend metFORMI N MARCIAL hydrochlori MIN 2019 ed HCl ([place] de 500 MG HCl 12:00: Kvng Oral Tablet 500MG 00 AM [facility] metFORMIN Oral EDT od Health HCl 500MG Tablet Center) Oral Tablet Lancets Lancet 03/26/ UNIT 1 suspend Lancets Th in MARCIAL Thin s Thin 2019 ed ([place] Miscellaneo Miscel 12:00: Fabio on us laneou 00 AM [facility] s EDT od Health Center) Lisinopril Lisino UNIT 1 suspend Lisinop ril MARCIAL 2.5 MG Oral pril 2019 ed ([place] Tablet 2.5MG 12:00: Kvng Lisinopril Oral 00 AM Neighbor ho 2.5MG Oral Tablet EDT od [facility] Tablet Center) Alcohol Alcoho UNIT active Alcohol Pad s [place] Pads 70% l Pads 2019 ([place] 70% 12:00: Kvng 00 AM [facility] EDT od Health Center) Metformin metFOR 12/20/ UNIT 1 suspend metFORMI N MARCIAL hydrochlori MIN 2019 ed HCl ([place] de 500 MG HCl 12:00: Kvng Oral Tablet 500MG 00 AM [facility] metFORMIN Oral EST od Health HCl 500MG Tablet Center) Oral Tablet Lancets Lancet 12/20/ UNIT 1 suspend Lancets Th in MARCIAL Thin s Thin 2019 ed ([place] Miscellaneo Miscel 12:00: Fabio on us laneou 00 AM [facility] s EST od Health Center) Blood Blood UNIT 1 suspend Blood GREENWV Y Glucose Glucos 2019 ed Glucose Test (M ount Test In e Test 12:00: Kvng Vitro Strip In 00 AM [facility] Vitro EST od Health Strip Center) Lovastatin Lovast 12/20/ UNIT 1 suspend Lovasta tin MARCIAL 20 MG Oral atin 2019 ed ([place] Tablet 20MG 12:00: Kvng Lovastatin Oral 00 AM Neighbor ho 20MG Oral Tablet EST od Healt h Tablet Center) Lisinopril Lisino UNIT 1 suspend Lisinop ril MARCIAL 2.5 MG Oral pril 2019 ed ([place] Tablet 2.5MG 12:00: Kvng Lisinopril Oral 00 AM Neighbor ho 2.5MG Oral Tablet EST od Heal th Tablet Center) Alcohol Alcoho UNIT suspend Alcohol Pa ds MARCIAL Pads 70% l Pads 2019 ed ([place] 70% 12:00: Kvng 00 AM [facility]ighbor[facility] EST od Health Center) Ibuprofen Ibupro 11/03/ UNIT 1 complet Ibuprofe n MARCIAL 800 MG Oral fen 2019 ed ([place] Tablet 800MG 12:00: Kvng Ibuprofen Oral 00 AM Neighborh o 800MG Oral Tablet EST od Heal Tablet Center) Bactrim DS Bactri 11/03/ UNIT 1 complet Bactrim MARCIAL 800-160MG m DS 2019 ed ([place] Oral Tablet 800-16 12:00: Fabio on 0MG 00 AM Neighborho Oral EST od Health Tablet Center) Lovastatin Lovast 07/07/ UNIT 1 suspend Lovasta tin MARCIAL 20 MG Oral atin 2018 ed ([place] Tablet 20MG 12:00: Kvng Lovastatin Oral 00 AM Neighbor ho 20MG Oral Tablet EDT od [facility] Center) Metformin metFOR 07/07/ UNIT 1 suspend metFORMI N MARCIAL hydrochlori MIN 2018 ed HCl ([place] de 500 MG HCl 12:00: Kvng Oral Tablet 500MG 00 AM Neighb orho metFORMIN Oral EDT od Health HCl 500MG Tablet Center) Oral Tablet Lisinopril Lisino 07/07/ UNIT 1 suspend Lisinop ril MARCIAL 2.5 MG Oral pril 2018 ed ([place] Tablet 2.5MG 12:00: Kvng Lisinopril Oral 00 AM Neighbor ho 2.5MG Oral Tablet EDT od [facility] Tablet Center) Blood Blood UNIT 1 suspend Blood GREENWA Y Glucose Glucos 2018 ed Glucose Test (M ount Test In e Test 12:00: Kvng Vitro Strip In 00 AM [facility]ho Vitro EDT od Health Strip Center) Alcohol Alcoho UNIT suspend Alcohol Pa ds MARCIAL Pads 70% l Pads 2019 ed ([place] 70% 12:00: Kvng 00 AM Neighborho EDT od Health Center) Blood Blood 06/29/ UNIT complet Blood GREENWA Y Glucose Glucos 2018 ed Glucose ([place] Monitor e 12:00: Monitor Kvng System Monito 00 AM System Neighbor ho w/Device r EDT od Health Kit System Center) w/Magali ce Kit Lancets Lancet 06/29/ UNIT 1 suspend Lancets Th in MARCIAL Thin s Thin 2019 ed ([place] Miscellaneo Miscel 12:00: Fabio on us laneou 00 AM Neighborho s EDT od Health Center) RA Tussin RA 06/29/ CAPFUL complet RA Tussi n MARCIAL Cough DM Tussin 2019 DOSING ed Cough DM (Mo unt Sugar Free Cough 12:00: UNIT Sugar Free Kvng 100-10MG/5M DM 00 AM Neighbo rho L Oral Sugar EDT od Health Syrup Free Center) 100-10 MG/5ML Oral Syrup cetirizine Cetiri 06/29/ UNIT 1 complet Cetiriz ine MARCIAL hydrochlori zine 2018 ed HCl ([place] de 10 MG HCl 12:00: Kvng Oral Tablet 10MG 00 AM Neighbo rho Cetirizine Oral EDT od Health HCl 10MG Tablet Center) Oral Tablet Systane Systan 03/02/ CAPFUL complet Systane MARCIAL 0.4-0.3% e 2018 DOSING ed ([facility] Ophthalmic 0.4-0. 12:00: UNIT Verno n Solution 3% 00 AM Neighborho Ophtha EDT od Health lmic Center) Soluti on Lisinopril Lisino 02/09/ UNIT 1 suspend Lisinop ril MARCIAL 2.5 MG Oral pril 2018 ed ([place] Tablet 2.5MG 12:00: Kvng Lisinopril Oral 00 AM Neighbor ho 2.5MG Oral Tablet EDT od Heal th Tablet Center) Lovastatin Lovast 02/09/ UNIT 1 suspend Lovasta tin MARCIAL 20 MG Oral atin 2018 ed ([place] Tablet 20MG 12:00: Kvng Lovastatin Oral 00 AM Neighbor ho 20MG Oral Tablet EDT od Healt h Tablet Center) Metformin metFOR 02/09/ UNIT 1 suspend metFORMI N MARCIAL hydrochlori MIN 2019 ed HCl ([place] de 500 MG HCl 12:00: Kvng Oral Tablet 500MG 00 AM Neighb orho metFORMIN Oral EDT od Health HCl 500MG Tablet Center) Oral Tablet Insurance Providers Payer name Policy type / Policy ID Covered Covered republican's Policy Plan Coverage type republican ID relationship to [place] Information [place] MVP MEDICAID [id number] SP [id number] O MEDICAID [id number] SP [id number] MVP Health Individual 0 Self 0 Plan of [facility] MVP Health Individual 0 Self 0 Plan of [facility] W [id number] 01 [id number] [facility] O [id number] 01 [id number] ACUTE O MVP/HHP O [id number] 01 [id number] [facility] IR Diagnostyx O [id number] 01 [id number] [facility] IR Diagnostyx O [id number] MVP Health Individual 0 Self 0 Plan of [facility] MVP Health Individual 0 Self 0 Plan of [facility] MVP Health Individual 0 Self 0 Plan of [facility] MVP Health Individual 0 Self 0 Plan of [facility] MVP Health Individual 0 Self 0 Plan of [facility] Dental [id number] S [id number] 000 [employer]plex MKD [place] [id number] S [id number] 000 Vision MKD [place] [facility] [id number] S [id number] Options MKD [place] [facility] [id number] S [id number] Options MKD Dental [id number] S [id number] A-0 [employer]plex MKD [place] [id number] S [id number] 000 Vision MKD MVP Medicaid [id number] S [id number] Managed Care Medicaid [id number] S [id number] Regular Clinic Visit P Medicaid [id number] S [id number] Managed Care [facility] [id number] S [id number] S Medicaid MVP Health Individual 0 Self 0 Plan of [facility] MVP Health Individual 0 Self 0 Plan of [facility] MVP Health Individual 0 Self 0 Plan of [facility] MVP Health Individual 0 Self 0 Plan of [facility] MVP Health Individual 0 Self 0 Plan of [facility] Problems, Conditions, and Diagnoses Code Display Name Description Problem Type Effective Data Sour ce(s) Dates Z48.00 Encounter for ENCOUNTER FOR Diagnosis 11/06/2019 [facility] change or removal CHANGE OR REMOVAL 12:18:00 PM [facility] nonsurgical OF NONSURG WOUND EST wound dressing DRESSING L72.3 Sebaceous cyst SEBACEOUS CYST Diagnosis 11/05/2019 [facility] [place] 01:55:00 PM Medical Cente r EST F17.210 Nicotine NICOTINE Diagnosis 11/05/2019 [place] dependence, DEPENDENCE, 01:55:[address] cigarettes, CIGARETTES, EST uncomplicated UNCOMPLICATED E78.5 Hyperlipidemia, HYPERLIPIDEMIA, Diagnosis 11/05/2019 [facility] [place] unspecified UNSPECIFIED 01:55:[address] EST I10 Essential ESSENTIAL Diagnosis 11/05/2019 [facility] [place] (primary) (PRIMARY) 01:55:00 PM Medical Cente r hypertension HYPERTENSION EST Z79.4 halfway LONG-TERM Diagnosis 11/05/2019 [place] (current) use of (CURRENT) USE OF 01:55:00 PM [facility] insulin INSULIN EST L02.412 Cutaneous abscess CUTANEOUS ABSCESS Diagnosis 11/03/2019 [facility] of left axilla OF LEFT AXILLA 05:40:00 PM Medic de Center EST Surgeries/Procedures Procedure Description Date Indications Data Source(s) No prior serious No prior serious 05/30/2020 INDEPENDENCEWA Y ([facility] illness illness 12:00:00 AM [facility]) Bmi documented outside BMI OUTSIDE NORMAL 04/09/2020 [place] ([facility] normal parameters, no RANGE - NO F/U PLAN 12:00:00 AM [facility] ) documented, no reason given FINGER STICK BLOOD FINGER STICK BLOOD 04/09/2020 [facility] ([facility] GLUCOSE GLUCOSE 12:00:00 AM [facility]) Bmi documented outside BMI OUTSIDE NORMAL 03/26/2020 [place] ([facility] normal parameters, no RANGE - NO F/U PLAN 12:00:00 AM [facility] ) documented, no reason given FINGER STICK BLOOD FINGER STICK BLOOD 03/26/2020 GRE ENWAY ([facility] GLUCOSE GLUCOSE 12:00:00 AM [facility]) No prior serious No prior serious 03/26/2020 GREENWA Y ([facility] illness illness 12:00:00 AM [facility]) FINGER STICK BLOOD FINGER STICK BLOOD 12/21/2019 [place] ([facility] GLUCOSE GLUCOSE 12:00:00 AM [facility]) EKG EKG 12/21/2019 MARCIAL ([facility] 12:00:00 AM [facility]) Unclassified drugs Clonidine .1mg 12/21/2019 JANAY Y ([facility] 12:00:00 AM [facility]) Administration of ADMIN OF ORAL OR IM 12/21/2019 [facility] ([facility] oral, intramuscular MEDS 12:00:00 AM [facility] and/or subcutaneous [facility] Health C enter) medication by health care agency/professional, per visit Bmi documented outside BMI OUTSIDE NORMAL 11/03/2019 [place] ([facility] normal parameters, no RANGE - NO F/U PLAN 12:00:00 AM [facility] ) documented, no reason given Bmi documented outside BMI OUTSIDE NORMAL 07/07/2019 [place] ([facility] normal parameters, no RANGE - NO F/U PLAN 12:00:00 AM [facility] ) documented, no reason given No history of surgery No history of 06/29/[address] ([facility] surgery 12:00:00 AM [facility]) VISUAL ACUITY SCREEN VISUAL ACUITY 06/29/2019 [place] ([facility] SCREEN 12:00:00 AM [facility]) FINGER STICK BLOOD FINGER STICK BLOOD 06/29/2019 [facility] GLUCOSE GLUCOSE 12:00:00 AM [facility]) EKG EKG 06/29/2019 [place] ([facility] 12:00:00 AM [facility]) Results ID Date Data Source [id number] 07/24/2020 12:00:00 AM EDT [facility] Name Value Range Interpretation Description Data Sup porting Code Source(s) Document(s ) Nasopharyngeal [facility] Swab SARS-CoV-2 / COVID-19 This lab was ordered by [facility] and reported by [employer] [facility] [employer]. ID Date Data Source [id number] 04/14/2020 06:00:00 AM EDT [facility] Name Value Range Interpretation Description Data Sup porting Code Source(s) Document(s ) SARS [facility] CORONAVIRUS 2 RNA This lab was ordered by [facility] and reported by [facility]. ID Date Data Source [id number] 03/26/2020 12:00:00 AM T [place] ([facility]) Name Value Range Interpretation Description Data Source(s ) Supporting Code Document(s ) No Specimen TNP No Specimen [place] ([facility] Received Received [facility]) Note: No Aptima transport received. 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 Equivocal may suggest early infection. If clinically appropriate , retest at later date. 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 Equivocal may suggest early infection. If clinically appropriate , retest at later date. Positive indicates antibodies detected to HSV-2 . ID Date Data Source [id number] 03/26/2020 12:00:00 AM EDT [place] ([facility]) Name Value Range Interpretation Description Data Source(s ) Supporting Code Document(s ) HIV 1+2 Non HIV Screen [place] Ab+HIV1 p24 Reactive 4th ([place] Ag [Presence] [facility]ighborhood in Serum or [facility]) Plasma by Immunoassay ID Date Data Source [id number] [facility] Name Value Range Interpretation Description Data Source(s ) Supporting Code Document(s ) Thyrotropin 1.650 TSH [place] ([facility] [Units/volume] uIU/mL Kv[facility] in Serum or [facility] Plasma by [facility]) Detection limit <= 0.05 mIU/L ID Date Data Source [id number] 03/26/2020 12:00:00 AM EDT [place] ([facility]) Name Value Range Interpretation Description Data Source(s ) Supporting Code Document(s ) Hemoglobin 6.5 % Above high normal Hemoglobin A1c [place] ([facility] A1c/Hemoglobi Kvng n.total in [facility] Blood [facility]) Note: Prediabetes: 5.7 - 6.4 Diabetes: >6.4 Glycemic control for adults with diabetes: <7.0 ID Date Data Source [id number] 03/26/2020 12:00:00 AM EDT [place] ([facility]) Name Value Range Interpretation Description Data Source(s ) Supporting Code Document(s ) Cholesterol 143 Cholesterol, MARCIAL [Mass/volume] mg/dL Total ([place] in Serum or [facility] Plasma [facility]) Cholesterol in 34 Below low normal HDL Cholesterol GR EENWAY HDL mg/dL ([place] [Mass/volume] [facility] in Serum or Health Center) Plasma Triglyceride 103 Triglycerides MARCIAL [Mass/volume] mg/dL (Vielka Calderon in Serum or [facility] Plasma [facility]) Laboratory N/A Comment: MARCIAL comment [Text] (Vielka Calderon in Report [facility] Narrative [facility]) Cholesterol in 21 VLDL MARCIAL VLDL mg/dL Cholesterol Jeronimo ([place] [Mass/volume] Neighborhood in Serum or [facility]) Plasma by calculation Cholesterol in 2.6 LDL/HDL Ratio MARCIAL LDL/Cholestero ratio (Vielka Calderon l in HDL [Mass Neighborhood Ratio] in [facility]) Serum or Plasma Note: LDL/HDL Ratio Men Women 1/2 Avg.Risk 1.0 1.5 Avg.Risk 3.6 3.2 2X Avg.Risk 6.2 5.0 3X Avg.Risk 8.0 6.1 Cholesterol in LDL 88 mg/dL LDL Cholesterol Calc MARCIAL ([place] [Mass/volume] in Serum or [facility] Plasma by calculation Center) ID Date Data Source [id number] 03/26/2020 12:00:00 AM EDT [place] ([facility]) Name Value Range Interpretation Description Data Sup porting Code Source(s) Document(s ) Calcium 8.9 Calcium MARCIAL [Mass/volume] in mg/dL ([facility] or [facility]) Glucose 81 Glucose MARCIAL [Mass/volume] in mg/dL ([facility] or [facility]) Urea nitrogen 9 mg/dL BUN MARCIAL [Mass/volume] in ([facility] or [facility]) Albumin 4.4 Albumin MARCIAL [Mass/volume] in g/dL ([facility] or [facility]) Protein 7.1 Protein, MARCIAL [Mass/volume] in g/dL Total ([facility] or [facility]) Alkaline 93 IU/L Alkaline MARCIAL phosphatase Phosphatase ([place] [Enzymatic [facility] activity/volume] [facility] in Serum or [facility]) Bilirubin.total 0.5 Bilirubin, MARCIAL [Mass/volume] in mg/dL Total ([facility] or [facility]) Sodium 141 Sodium MARCIAL [Moles/volume] in mmol/L ([facility] or [facility]) Potassium 4.3 Potassium MARCIAL [Moles/volume] in mmol/L ([facility]) Aspartate 28 IU/L AST (SGOT) MARCIAL aminotransferase ([place] [Enzymatic Neighborhood activity/volume] [facility] in Serum or [facility]) Chloride 106 Chloride MARCIAL [Moles/volume] in mmol/L ([facility] or [facility]) Creatinine 0.81 Creatinine MARCIAL [Mass/volume] in mg/dL ([facility] or [facility]) Carbon dioxide, 20 Carbon MARCIAL total mmol/L Dioxide, ([place] [Moles/volume] in Total [facility] or [facility]) Alanine 30 IU/L ALT (SGPT) MARCIAL aminotransferase ([place] [Enzymatic Neighborhood activity/volume] [facility] in Serum or [facility]) Urea 11 BUN/Creatinin MARCIAL nitrogen/Creatinin e Ratio ([facility] on e [Mass Ratio] in [facility] or [facility]) eGFR If NonAfricn 102 eGFR If MARCIAL Am mL/min/ NonAfricn Am ([place] 1.73 [facility]) Albumin/Globulin 1.6 A/G Ratio MARCIAL [Mass Ratio] in ([facility] or [facility]) Globulin 2.7 Globulin, MARCIAL [Mass/volume] in g/dL Total ([place] Serum by ) eGFR If Africn Am 118 eGFR If MARCIAL mL/min/ Africn Am (Vielka Calderon 1.73 [facility]) ID Date Data Source [id number] 03/22/2020 03:22:00 PM EDT [facility] Name Value Range Interpretation Code Description Data Claire rce(s) Supporting Document(s ) SARS-COV-2 [facility] This lab was ordered by [facility] and reported by [employer]. ID Date Data Source Liver 11/05/2019 05:07:00 AM EST [facility] Profile.[id number] Name Value Range Interpretation Description Data Sup porting Code Source(s) Document(s ) Alkaline 38-126 <content [facility] phosphatase styleCode="Bold"> Micah [Enzymatic Alkaline Medical activity/volume] Phosphatase (ALP) Cente r in Serum or Plasma </content>83 IU/L<content styleCode="Italic s"> (38-126 IU/L)</content> Alanine 7-50 <content [facility] aminotransferase styleCode="Bold"> Sadiq hs [Enzymatic Alanine Medical activity/volume] Aminotransferase Center in Serum or Plasma (ALT) </content>23 IU/L<content styleCode="Italic s"> (7-50 IU/L)</content> Aspartate 17-59 <content [facility] aminotransferase styleCode="Bold"> Sadiq hs [Enzymatic Aspartate Medical activity/volume] Aminotransferase Center in Serum or Plasma (AST) </content>22 IU/L<content styleCode="Italic s"> (17-59 IU/L)</content> Bilirubin.total 0.2-1.3 <content Saint [Mass/volume] in styleCode="Bold"> Sadiq hs Serum or Plasma Bilirubin Total Medical </content>0.2 Center MG/DL<content styleCode="Italic s"> (0.2-1.3 MG/DL)</content> Albumin 3.5-5.0 Below low <content [facility] [Mass/volume] in normal styleCode="Bold"> Sadiq hs Serum or Plasma Albumin Medical </content>3.4 Center G/DL L<content styleCode="Italic s"> (3.5-5.0 G/DL)</content> ID Date Data Source HematologyRou.[id number] 11/05/2019 05:07:00 AM OLAYINKA [facility] 0500 Name Value Range Interpretation Description Data Sup porting Code Source(s) Document(s ) Hemoglobin 13.5-17. <content [facility] [Mass/volume] in 5 styleCode="Bold Micah Blood ">Hemoglobin Medical </content>14.2 Center G/DL<content styleCode="Ital ics"> (13.5-17.5 G/DL)</content> Erythrocytes 4.4-5.9 <content Saint [#/volume] in styleCode="Bold Micah Blood by ">Red Blood Medical Automated count Cell Count Center </content>4.84 MCUMM<content styleCode="Ital ics"> (4.4-5.9 MCUMM)</content > Leukocytes 4.4-11.0 <content Saint [#/volume] in styleCode="Bold Micah Blood by ">White Blood Medical Automated count Cell Count Center </content>9.32 KCUMM<content styleCode="Ital ics"> (4.4-11.0 KCUMM)</content > Hematocrit 41.0-53. <content Saint [Volume 0 styleCode="Bold [facility] Fraction] of ">Hematocrit Medical Blood by </content>43.9 Center Automated count %<content styleCode="Ital ics"> (41.0-53.0 %)</content> Erythrocyte 11.5-14. Above high <content Saint distribution 5 normal styleCode="Bold [facility] width [Ratio] by ">Red Cell Medical Automated count Distribution Center Width </content>14.6 % H<content styleCode="Ital ics"> (11.5-14.5 %)</content> Erythrocyte mean 26.0-34. <content [facility] corpuscular 0 styleCode="Bold Micah hemoglobin ">Mean Medical [Entitic mass] Corposcular Center by Automated Hemoglobin count </content>29.3 PG<content styleCode="Ital ics"> (26.0-34.0 PG)</content> Erythrocyte mean 32.0-37. <content [facility] corpuscular 0 styleCode="Bold Micah hemoglobin ">Mean Corpus. Medical concentration Hgb Center [Mass/volume] by Concentration Automated count (MCHC) </content>32.3 G/DL<content styleCode="Ital ics"> (32.0-37.0 G/DL)</content> Erythrocyte mean 80.0-100 <content [facility] corpuscular .0 styleCode="Bold Micah volume [Entitic ">Mean Medical volume] by Corpuscular Center Automated count Volume </content>90.7 FL<content styleCode="Ital ics"> (80.0-100.0 FL)</content> UNK 0.0 <content Saint styleCode="Bold Micah ">Nucleated Red Medical Blood Cell Center Count </content>0.00 KCUMM<content styleCode="Ital ics"> (0.0 KCUMM)</content > Platelets 130-400 <content Saint [#/volume] in styleCode="Bold Micah Blood by ">Platelet Medical Automated count Count Center </content>223 KCUMM<content styleCode="Ital ics"> (130-400 KCUMM)</content > UNK 0 <content Saint styleCode="Bold Micah ">Nucleated Red Medical Blood Cell Center </content>0.0 /100<content styleCode="Ital ics"> (0 /100)</content> Platelet mean 8.0-11.0 <content Saint volume [Entitic styleCode="Bold Micha volume] in Blood ">Mean Platelet Medical by Automated Volume Center count </content>10.4 FL<content styleCode="Ital ics"> (8.0-11.0 FL)</content> ID Date Data Source GFR(Creatinine).[id number] 11/05/2019 05:07:00 AM OLAYINKA [facility] 0-0500 Name Value Range Interpretation Code Description Data Claire rce(s) Supporting Document(s ) UNK > 60 <content [facility] styleCode="Bold"> Medical Cent er EGFR </content>131 GFR<content styleCode="Italic s"> (> 60 GFR)</content> ID Date Data Source [id number] 11/05/2019 05:07:00 AM OLAYINKA [facility] -0500 Name Value Range Interpretation Description Data Sup porting Code Source(s) Document(s ) UNK >= 1.0 <content Saint styleCode="Robinson Micah d">AG Ratio Medical </content>1.2 Center <content styleCode="Elen lics"> (>= 1.0 )</content> UNK 2.3-3.5 <content Saint styleCode="Robinson Micah d">Globulin Medical </content>2.9 Center G/DL<content styleCode="Elen lics"> (2.3-3.5 G/DL)</content > Phosphate 2.5-4.5 <content Saint [Mass/volume] styleCode="Robinson Asencios in Serum or d">Phosphorus Medical Plasma </content>3.7 Center MG/DL<content styleCode="Elen lics"> (2.5-4.5 MG/DL)</conten t> Magnesium 1.6-2.3 <content [facility] [Mass/volume] styleCode="Robinson Micah in Serum or d">Magnesium Medical Plasma </content>1.8 Center MG/DL<content styleCode="Elen lics"> (1.6-2.3 MG/DL)</conten t> Protein 6.3-8.2 <content [facility] [Mass/volume] styleCode="Robinson Micah in Serum or d">Total Medical Plasma Protein Center </content>6.3 G/DL<content styleCode="Elen lics"> (6.3-8.2 G/DL)</content > ID Date Data Source [facility].[id number] 11/05/2019 05:07:00 AM OLAYINKA [facility] Name Value Range Interpretation Description Data Sup porting Code Source(s) Document(s ) Potassium 3.5-5.3 <content [facility] [Moles/volume] in styleCode="Bold"> [place] phs Serum or Plasma Potassium Medical </content>4.4 Center MEQ/L<content styleCode="Italic s"> (3.5-5.3 MEQ/L)</content> Sodium 137-145 Below low <content [facility] [Moles/volume] in normal styleCode="Bold"> [place] phs Serum or Plasma Sodium Medical </content>135 Center MEQ/L L<content styleCode="Italic s"> (137-145 MEQ/L)</content> Carbon dioxide, 22-30 <content Saint total styleCode="Bold"> Micah [Moles/volume] in Carbon Dioxide Medical Serum or Plasma </content>24 Center MEQ/L<content styleCode="Italic s"> (22-30 MEQ/L)</content> Glucose 74-106 <content [facility] [Mass/volume] in styleCode="Bold"> Sadiq hs Serum or Plasma Glucose Medical </content>91 Center MG/DL<content styleCode="Italic s"> (74-106 MG/DL)</content> Chloride 98-107 <content [facility] [Moles/volume] in styleCode="Bold"> [place] [facility] Serum or Plasma Chloride Medical </content>106 Center MEQ/L<content styleCode="Italic s"> (98-107 MEQ/L)</content> Creatinine 0.5-1.3 <content [facility] [Mass/volume] in styleCode="Bold"> Sadiq hs Serum or Plasma Creatinine Medical </content>0.8 Center MG/DL<content styleCode="Italic s"> (0.5-1.3 MG/DL)</content> UNK 9-20 <content Saint styleCode="Bold"> Micah BUN </content>13 Medical MG/DL<content Center styleCode="Italic s"> (9-20 MG/DL)</content> Calcium 8.4-10. <content [facility] [Mass/volume] in 2 styleCode="Bold"> Sadiq hs Serum or Plasma Calcium Medical </content>8.6 Center MG/DL<content styleCode="Italic s"> (8.4-10.2 MG/DL)</content> Bilirubin.total 0.2-1.3 <content [facility] [Mass/volume] in styleCode="Bold"> Sadiq hs Serum or Plasma Bilirubin Total Medical </content>0.2 Center MG/DL<content styleCode="Italic s"> (0.2-1.3 MG/DL)</content> Aspartate 17-59 <content [facility] aminotransferase styleCode="Bold"> Sadiq hs [Enzymatic Aspartate Medical activity/volume] Aminotransferase Center in Serum or Plasma (AST) </content>22 IU/L<content styleCode="Italic s"> (17-59 IU/L)</content> Alkaline 38-126 <content [facility] phosphatase styleCode="Bold"> Micah [Enzymatic Alkaline Medical activity/volume] Phosphatase (ALP) Cente r in Serum or Plasma </content>83 IU/L<content styleCode="Italic s"> (38-126 IU/L)</content> Alanine 7-50 <content [facility] aminotransferase styleCode="Bold"> Sadiq hs [Enzymatic Alanine Medical activity/volume] Aminotransferase Center in Serum or Plasma (ALT) </content>23 IU/L<content styleCode="Italic s"> (7-50 IU/L)</content> UNK > 60 <content Saint styleCode="Bold"> Micah EGFR Medical </content>131 Center GFR<content styleCode="Italic s"> (> 60 GFR)</content> Albumin 3.5-5.0 Below low <content [facility] [Mass/volume] in normal styleCode="Bold"> Sadiq hs Serum or Plasma Albumin Medical </content>3.4 Center G/DL L<content styleCode="Italic s"> (3.5-5.0 G/DL)</content> ID Date Data Source Microbiology.[id number] 11/04/2019 02:30:00 PM EST [facility] 500 Name Value Range Interpretation Code Description Data Claire rce(s) Supporting Document(s ) UNK <item><content [facility] styleCode="Bold"> Medical Cent er Culture Report </content>
<t able><tbody><tr>< td>Specimen Number:</td><td>[id number]</td></tr ><tr><td>Sample Collection Date/Time: </td><td> 0 2:30 PM</td></tr><tr>< td>Specimen Source:</td><td>A XILLA</td></tr><t r><td>Wound Culture:</td><td> Collection Plate Date: 11/04/2019 15:27 </td></tr><tr><td >Culture Status:</td><td>P reliminary </td></tr><tr><td >Culture Report:</td><td>C ulture in progress </td></tr><tr><td >Gram Stain:</td><td>FE W GRAM POSITIVE COCCI IN PAIRS </td></tr><tr><td >Preliminary 1:</td><td>FEW LIGHT LACTOSE GUEST SERVICE AGENT </td></tr></tbody ></table></item> UNK <item><content [facility] styleCode="Bold"> Medical [facility] er Culture Status </content>
<t able><tbody><tr>< td>Specimen Number:</td><td>[id number]</td></tr ><tr><td>Sample Collection Date/Time: </td><td> 0 2:30 PM</td></tr><tr>< td>Specimen Source:</td><td>A XILLA</td></tr><t r><td>Gram Stain:</td><td>FE W GRAM POSITIVE COCCI IN PAIRS </td></tr><tr><td >Preliminary 1:</td><td>FEW LIGHT LACTOSE GUEST SERVICE AGENT </td></tr><tr><td >Culture Status:</td><td>P reliminary </td></tr><tr><td >Culture Report:</td><td>C ulture in progress </td></tr><tr><td >Wound Culture:</td><td> Collection Plate Date: 11/04/2019 15:27 </td></tr></tbody ></table></item> ID Date Data Source Liver 11/04/2019 06:22:00 AM EST [facility] Profile.[id number] Name Value Range Interpretation Description Data Sup porting Code Source(s) Document(s ) Aspartate 17-59 <content [facility] aminotransferase styleCode="Bold"> Sadiq hs [Enzymatic Aspartate Medical activity/volume] Aminotransferase Center in Serum or Plasma (AST) </content>24 IU/L<content styleCode="Italic s"> (17-59 IU/L)</content> Alanine 7-50 <content [facility] aminotransferase styleCode="Bold"> Sadiq hs [Enzymatic Alanine Medical activity/volume] Aminotransferase Center in Serum or Plasma (ALT) </content>27 IU/L<content styleCode="Italic s"> (7-50 IU/L)</content> Albumin 3.5-5.0 <content Saint [Mass/volume] in styleCode="Bold"> Sadiq hs Serum or Plasma Albumin Medical </content>3.6 Center G/DL<content styleCode="Italic s"> (3.5-5.0 G/DL)</content> Bilirubin.total 0.2-1.3 <content [facility] [Mass/volume] in styleCode="Bold"> Sadiq hs Serum or Plasma Bilirubin Total Medical </content>0.3 Center MG/DL<content styleCode="Italic s"> (0.2-1.3 MG/DL)</content> Alkaline 38-126 <content [facility] phosphatase styleCode="Bold"> Micah [Enzymatic Alkaline Medical activity/volume] Phosphatase (ALP) Cente r in Serum or Plasma </content>89 IU/L<content styleCode="Italic s"> (38-126 IU/L)</content> ID Date Data Source HematologyRou.[id number] 11/04/2019 06:22:00 AM [facility] Name Value Range Interpretation Description Data Sup porting Code Source(s) Document(s ) Leukocytes 4.4-11.0 <content Saint [#/volume] in styleCode="Bold Micah Blood by ">White Blood Medical Automated count Cell Count Center </content>9.06 KCUMM<content styleCode="Ital ics"> (4.4-11.0 KCUMM)</content > Erythrocytes 4.4-5.9 <content Saint [#/volume] in styleCode="Bold Micah Blood by ">Red Blood Medical Automated count Cell Count Center </content>4.98 MCUMM<content styleCode="Ital ics"> (4.4-5.9 MCUMM)</content > Erythrocyte mean 80.0-100 <content Saint corpuscular .0 styleCode="Bold Micah volume [Entitic ">Mean Medical volume] by Corpuscular Center Automated count Volume </content>90.0 FL<content styleCode="Ital ics"> (80.0-100.0 FL)</content> Hemoglobin 13.5-17. <content Saint [Mass/volume] in 5 styleCode="Bold Micah Blood ">Hemoglobin Medical </content>14.6 Center G/DL<content styleCode="Ital ics"> (13.5-17.5 G/DL)</content> Hematocrit 41.0-53. <content Saint [Volume 0 styleCode="Bold Micah Fraction] of ">Hematocrit Medical Blood by </content>44.8 Center Automated count %<content styleCode="Ital ics"> (41.0-53.0 %)</content> Platelets 130-400 <content Saint [#/volume] in styleCode="Bold Micah Blood by ">Platelet Medical Automated count Count Center </content>231 KCUMM<content styleCode="Ital ics"> (130-400 KCUMM)</content > Erythrocyte mean 32.0-37. <content [facility] corpuscular 0 styleCode="Bold Micah hemoglobin ">Mean Corpus. Medical concentration Hgb Center [Mass/volume] by Concentration Automated count (MCHC) </content>32.6 G/DL<content styleCode="Ital ics"> (32.0-37.0 G/DL)</content> Erythrocyte 11.5-14. Above high <content Saint distribution 5 normal styleCode="Bold Micah width [Ratio] by ">Red Cell Medical Automated count Distribution Center Width </content>14.6 % H<content styleCode="Ital ics"> (11.5-14.5 %)</content> Erythrocyte mean 26.0-34. <content Saint corpuscular 0 styleCode="Bold Micah hemoglobin ">Mean Medical [Entitic mass] Corposcular Center by Automated Hemoglobin count </content>29.3 PG<content styleCode="Ital ics"> (26.0-34.0 PG)</content> Neutrophils 36-66 <content Saint [#/volume] in styleCode="Bold Micah Blood by ">Neutrophil Medical Automated count </content>52.8 Center %<content styleCode="Ital ics"> (36-66 %)</content> UNK 1.0-4.8 <content Saint styleCode="Bold Micah ">Lymphocyte Medical Count Center </content>3.14 KCUMM<content styleCode="Ital ics"> (1.0-4.8 KCUMM)</content > Platelet mean 8.0-11.0 <content Saint volume [Entitic styleCode="Bold Micah volume] in Blood ">Mean Platelet Medical by Automated Volume Center count </content>10.3 FL<content styleCode="Ital ics"> (8.0-11.0 FL)</content> Lymphocytes 24.0-44. <content Saint [#/volume] in 0 styleCode="Bold Micah Blood by ">Lymphocyte Medical Automated count </content>34.7 Center %<content styleCode="Ital ics"> (24.0-44.0 %)</content> UNK 1.6-7.3 <content Saint styleCode="Bold Micah ">Neutrophil Medical Count Center </content>4.79 KCUMM<content styleCode="Ital ics"> (1.6-7.3 KCUMM)</content > Eosinophils 0-5.0 <content Saint [#/volume] in styleCode="Bold Micah Blood by ">Eosinophil Medical Automated count </content>1.9 Center %<content styleCode="Ital ics"> (0-5.0 %)</content> Basophils 0.0-1.0 <content Saint [#/volume] in styleCode="Bold Micah Blood by ">Basophil Medical Automated count </content>0.6 Center %<content styleCode="Ital ics"> (0.0-1.0 %)</content> UNK 0.2-0.9 <content Saint styleCode="Bold Micah ">Monocyte Medical Count Center </content>0.89 KCUMM<content styleCode="Ital ics"> (0.2-0.9 KCUMM)</content > Monocytes 3.0-10.0 <content [facility] [#/volume] in styleCode="Bold Micah Blood by ">Monocyte Medical Automated count </content>9.8 Center %<content styleCode="Ital ics"> (3.0-10.0 %)</content> UNK 0.0-0.6 <content [facility] styleCode="Bold Micah ">Eosinophil Medical Count Center </content>0.17 KCUMM<content styleCode="Ital ics"> (0.0-0.6 KCUMM)</content > UNK 0.0 <content [facility] styleCode="Bold Micah ">Nucleated Red Medical Blood Cell Center Count </content>0.00 KCUMM<content styleCode="Ital ics"> (0.0 KCUMM)</content > UNK 0 <content [facility] styleCode="Bold Micah ">Nucleated Red Medical Blood Cell Center </content>0.0 /100<content styleCode="Ital ics"> (0 /100)</content> UNK 0.0-0.3 <content [facility] styleCode="Bold Micah ">Basophil Medical Count Center </content>0.05 KCUMM<content styleCode="Ital ics"> (0.0-0.3 KCUMM)</content > UNK 0-0.1 <content [facility] styleCode="Bold Micah ">Immature Medical Granulocyte Center Count </content>0.02 KCUMM<content styleCode="Ital ics"> (0-0.1 KCUMM)</content > UNK < 1 <content [facility] styleCode="Bold Micah ">Immature Medical Granulocyte Center Ratio </content>0.2 %<content styleCode="Ital ics"> (< 1 %)</content> ID Date Data Source GFR(Creatinine).[id number] 11/04/2019 06:22:00 AM EST [facility] 0-0500 Name Value Range Interpretation Code Description Data Claire rce(s) Supporting Document(s ) UNK > 60 <content [facility] styleCode="Bold"> Medical Cent er EGFR </content>114 GFR<content styleCode="Italic s"> (> 60 GFR)</content> ID Date Data Source Coagulation 11/04/2019 06:22:00 AM [facility] ical Center Rout.[id number] EST Name Value Range Interpretation Description Data Sup porting Code Source(s) Document(s ) aPTT in 25.1-36. <content [facility] Platelet poor 5 styleCode="Bold" Micah plasma by >Partial Medical Coagulation Thromboplastin Center assay Time </content>35.8 SEC<content styleCode="Itali cs"> (25.1-36.5 SEC)</content> UNK 9.0-13.0 <content [facility] styleCode="Bold" Micah >Protime Medical </content>12.7 Center SEC<content styleCode="Itali cs"> (9.0-13.0 SEC)</content> INR in 0.80-1.2 <content [facility] Platelet poor 0 styleCode="Bold" Micah plasma by >INR Medical Coagulation </content>1.14 Center assay #<content styleCode="Itali cs"> (0.80-1.20 #)</content> ID Date Data Source CHMROUTINECCDA.[id number] 11/04/2019 06:22:00 AM EST [facility] -0500 Name Value Range Interpretation Description Data Sup porting Code Source(s) Document(s ) UNK 2.3-3.5 <content [facility] styleCode="Bold Medical ">Globulin Center </content>2.9 G/DL<content styleCode="Ital ics"> (2.3-3.5 G/DL)</content> UNK >= 1.0 <content [facility] styleCode="Bold Medical ">AG Ratio Center </content>1.2 <content styleCode="Ital ics"> (>= 1.0 )</content> UNK 4.2-5.8 Above high normal <content [facility] styleCode="Bold Medical ">Hemoglobin Center A1C </content>6.5 % H<content styleCode="Ital ics"> (4.2-5.8 %)</content> Protein 6.3-8.2 <content [facility] [Mass/volum styleCode="Bold Medical e] in Serum ">Total Protein Center or Plasma </content>6.5 G/DL<content styleCode="Ital ics"> (6.3-8.2 G/DL)</content> ID Date Data Source BloodBank.[id number] 11/04/2019 06:22:00 AM EST [facility] Name Value Range Interpretation Code Description Data Claire rce(s) Supporting Document(s ) UNK NEGATIVE <content [facility] styleCode="Bold" Medical Cente r >Antibody Screen </content>NEGATI VE <content styleCode="Itali cs"> (NEGATIVE )</content> UNK <content [facility] styleCode="Bold" Medical Cente r >RH Type </content>POSITI VE (Reference Range: not available)
UNK <content [facility] styleCode="Bold" Medical Cente r >Blood Type </content>GROUP O (Reference Range: not available)
ID Date Data Source [id number] 11/04/2019 06:22:00 AM EST [facility] Name Value Range Interpretation Description Data Sup porting Code Source(s) Document(s ) Sodium 137-145 <content [facility] [Moles/volume] in styleCode="Bold"> [place] phs Serum or Plasma Sodium Medical </content>139 Center MEQ/L<content styleCode="Italic s"> (137-145 MEQ/L)</content> Chloride 98-107 <content [facility] [Moles/volume] in styleCode="Bold"> [place] [facility] Serum or Plasma Chloride Medical </content>107 Center MEQ/L<content styleCode="Italic s"> (98-107 MEQ/L)</content> Potassium 3.5-5.3 <content [facility] [Moles/volume] in styleCode="Bold"> [place] [facility] Serum or Plasma Potassium Medical </content>4.0 Center MEQ/L<content styleCode="Italic s"> (3.5-5.3 MEQ/L)</content> UNK 9-20 <content [facility] styleCode="Bold"> Micah BUN </content>13 Medical MG/DL<content Center styleCode="Italic s"> (9-20 MG/DL)</content> Glucose 74-106 <content [facility] [Mass/volume] in styleCode="Bold"> Sadiq hs Serum or Plasma Glucose Medical </content>96 Center MG/DL<content styleCode="Italic s"> (74-106 MG/DL)</content> Carbon dioxide, 22-30 <content [facility] total styleCode="Bold"> Micah [Moles/volume] in Carbon Dioxide Medical Serum or Plasma </content>24 Center MEQ/L<content styleCode="Italic s"> (22-30 MEQ/L)</content> Creatinine 0.5-1.3 <content [facility] [Mass/volume] in styleCode="Bold"> Sadiq hs Serum or Plasma Creatinine Medical </content>0.9 Center MG/DL<content styleCode="Italic s"> (0.5-1.3 MG/DL)</content> Alanine 7-50 <content [facility] aminotransferase styleCode="Bold"> Sadiq hs [Enzymatic Alanine Medical activity/volume] Aminotransferase Center in Serum or Plasma (ALT) </content>27 IU/L<content styleCode="Italic s"> (7-50 IU/L)</content> Calcium 8.4-10. <content [facility] [Mass/volume] in 2 styleCode="Bold"> Sadiq hs Serum or Plasma Calcium Medical </content>9.3 Center MG/DL<content styleCode="Italic s"> (8.4-10.2 MG/DL)</content> Aspartate 17-59 <content [facility] aminotransferase styleCode="Bold"> Sadiq hs [Enzymatic Aspartate Medical activity/volume] Aminotransferase Center in Serum or Plasma (AST) </content>24 IU/L<content styleCode="Italic s"> (17-59 IU/L)</content> UNK > 60 <content [facility] styleCode="Bold"> Micah EGFR Medical </content>114 Center GFR<content styleCode="Italic s"> (> 60 GFR)</content> Alkaline 38-126 <content [facility] phosphatase styleCode="Bold"> Micah [Enzymatic Alkaline Medical activity/volume] Phosphatase (ALP) Cente r in Serum or Plasma </content>89 IU/L<content styleCode="Italic s"> (38-126 IU/L)</content> Albumin 3.5-5.0 <content [facility] [Mass/volume] in styleCode="Bold"> Sadiq hs Serum or Plasma Albumin Medical </content>3.6 Center G/DL<content styleCode="Italic s"> (3.5-5.0 G/DL)</content> Bilirubin.total 0.2-1.3 <content [facility] [Mass/volume] in styleCode="Bold"> Sadiq hs Serum or Plasma Bilirubin Total Medical </content>0.3 Center MG/DL<content styleCode="Italic s"> (0.2-1.3 MG/DL)</content> ID Date Data Source Urinalysis.[id number] 11/03/2019 07:13:00 PM EST [facility] 0 Name Value Range Interpretation Description Data Sup porting Code Source(s) Document(s ) Color of Urine YELLOW <content [facility] styleCode="Robinson Obrien d">Color, Medical Urine Center </content>YELL OW <content styleCode="Elen lics"> (YELLOW )</content> UNK CLEAR <content [facility] styleCode="Robinson Micah d">Urine Medical Clarity Center </content>EVA R <content styleCode="Elen lics"> (CLEAR )</content> UNK NEGATIVE <content [facility] styleCode="Robinson Asencios d">Urine Medical Bilirubin Center </content>NEGA TIVE <content styleCode="Elen lics"> (NEGATIVE )</content> Ketones NEGATIVE <content [facility] [Mass/volume] styleCode="Robinson Obrien in Urine by d">Urine Medical Test strip Ketone Center </content>NEGA TIVE MG/DL<content styleCode="Elen lics"> (NEGATIVE MG/DL)</conten t> Glucose NEGATIVE <content [facility] [Mass/volume] styleCode="Robinson Asencios in Urine by d">Urine Medical Test strip Glucose Center </content>NEGA TIVE MG/DL<content styleCode="Elen lics"> (NEGATIVE MG/DL)</conten t> pH of Urine by 4.5-8.0 <content [facility] Test strip styleCode="Robinson Asencios d">Urine pH Medical </content>6.0 Center <content styleCode="Elen lics"> (4.5-8.0 )</content> Hemoglobin NEGATIVE <content [facility] [Presence] in styleCode="Robinson Obrien Urine by Test d">Urine Blood Medical strip </content>NEGA Center TIVE <content styleCode="Elen lics"> (NEGATIVE )</content> Protein NEGATIVE <content [facility] [Mass/volume] styleCode="Robinson Obrien in Urine by d">Urine Medical Test strip Protein Center </content>NEGA TIVE MG/DL<content styleCode="Elen lics"> (NEGATIVE MG/DL)</conten t> Specific 1.015-1.02 <content [facility] gravity of 5 styleCode="Robinson Obrien Urine by Test d">Urine Medical strip Specific Center [place] </content>1.02 0 <content styleCode="Elen lics"> (1.015-1.025 )</content> Nitrite NEGATIVE <content [facility] [Presence] in styleCode="Robinson Obrien Urine by Test d">Urine Medical strip Nitrite Center </content>NEGA TIVE <content styleCode="Elen lics"> (NEGATIVE )</content> Urobilinogen 0.2-1.0 <content [facility] [Units/volume] styleCode="Robinson Asencios in Urine by d">Urine Medical Test strip Urobilinogen Center </content>0.2 MG/DL<content styleCode="Elen lics"> (0.2-1.0 MG/DL)</conten t> Leukocyte NEGATIVE <content [facility] esterase styleCode="Robinson Obrien [Presence] in d">Urine Medical Urine by Test Leukocyte Center strip </content>NEGA TIVE <content styleCode="Elen lics"> (NEGATIVE )</content> ID Date Data Source LIPID.[id number] 11/03/2019 07:00:00 PM EST [facility] Name Value Range Interpretation Description Data Sup porting Code Source(s) Document(s ) Triglyceride < 150 <content [facility] [Mass/volume] in styleCode="Robinson Asencios Serum or Plasma d">Triglycerid Medical es Center </content>102 MG/DL<content styleCode="Elen lics"> (< 150 MG/DL)</conten t> Cholesterol -<200 <content [facility] [Mass/volume] in styleCode="Robinson Micah Serum or Plasma d">Cholesterol Medical </content>128 Center MG/DL<content styleCode="Elen lics"> (-<200 MG/DL)</conten t> UNK < 100 <content [facility] styleCode="Robinson Micah d">LDL-Cholest Medical ginette Center </content>80 MG/DL<content styleCode="Elen lics"> (< 100 MG/DL)</conten t> UNK > 60 Below low normal <content Saint styleCode="Robinson Micah d">HDL- Medical Cholesterol Center </content>28 MG/DL L<content styleCode="Elen lics"> (> 60 MG/DL)</conten t> ID Date Data Source HematologyRou.[id number] 11/03/2019 07:00:00 PM EST [facility] 0500 Name Value Range Interpretation Description Data Sup porting Code Source(s) Document(s ) Leukocytes 4.4-11.0 Above high <content [facility] [#/volume] in normal styleCode="Bold Micah Blood by ">White Blood Medical Automated count Cell Count Center </content>12.98 KCUMM H<content styleCode="Ital ics"> (4.4-11.0 KCUMM)</content > Erythrocyte mean 80.0-100 <content [facility] corpuscular .0 styleCode="Bold Micah volume [Entitic ">Mean Medical volume] by Corpuscular Center Automated count Volume </content>88.9 FL<content styleCode="Ital ics"> (80.0-100.0 FL)</content> Hemoglobin 13.5-17. <content [facility] [Mass/volume] in 5 styleCode="Bold Micah Blood ">Hemoglobin Medical </content>14.8 Center G/DL<content styleCode="Ital ics"> (13.5-17.5 G/DL)</content> Erythrocyte mean 26.0-34. <content [facility] corpuscular 0 styleCode="Bold Micah hemoglobin ">Mean Medical [Entitic mass] Corposcular Center by Automated Hemoglobin count </content>28.8 PG<content styleCode="Ital ics"> (26.0-34.0 PG)</content> Erythrocytes 4.4-5.9 <content [facility] [#/volume] in styleCode="Bold Micah Blood by ">Red Blood Medical Automated count Cell Count Center </content>5.13 MCUMM<content styleCode="Ital ics"> (4.4-5.9 MCUMM)</content > Hematocrit 41.0-53. <content [facility] [Volume 0 styleCode="Bold Micah Fraction] of ">Hematocrit Medical Blood by </content>45.6 Center Automated count %<content styleCode="Ital ics"> (41.0-53.0 %)</content> Erythrocyte mean 32.0-37. <content [facility] corpuscular 0 styleCode="Bold Micah hemoglobin ">Mean Corpus. Medical concentration Hgb Center [Mass/volume] by Concentration Automated count (MCHC) </content>32.5 G/DL<content styleCode="Ital ics"> (32.0-37.0 G/DL)</content> Erythrocyte 11.5-14. Above high <content [facility] distribution 5 normal styleCode="Emmy Asencios width [Ratio] by ">Red Cell Medical Automated count Distribution Center Width </content>14.9 % H<content styleCode="Ital ics"> (11.5-14.5 %)</content> Platelet mean 8.0-11.0 <content [facility] volume [Entitic styleCode="Bold Micah volume] in Blood ">Mean Platelet Medical by Automated Volume Center count </content>10.2 FL<content styleCode="Ital ics"> (8.0-11.0 FL)</content> Platelets 130-400 <content [facility] [#/volume] in styleCode="Bold Micah Blood by ">Platelet Medical Automated count Count Center </content>229 KCUMM<content styleCode="Ital ics"> (130-400 KCUMM)</content > UNK 0 <content [facility] styleCode="Bold Micah ">Nucleated Red Medical Blood Cell Center </content>0.0 /100<content styleCode="Ital ics"> (0 /100)</content> UNK 0.0 <content [facility] styleCode="Bold Micah ">Nucleated Red Medical Blood Cell Center Count </content>0.00 KCUMM<content styleCode="Ital ics"> (0.0 KCUMM)</content > ID Date Data Source GFR(Creatinine).[id number] 11/03/2019 07:00:00 PM EST [facility] 0-0500 Name Value Range Interpretation Code Description Data Claire rce(s) Supporting Document(s ) UNK > 60 <content [facility] styleCode="Bold"> Medical Cent er EGFR </content>114 GFR<content styleCode="Italic s"> (> 60 GFR)</content> ID Date Data Source Coagulation 11/03/2019 07:00:00 PM [facility] Rout.[id number] EST Name Value Range Interpretation Description Data Sup porting Code Source(s) Document(s ) UNK 9.0-13.0 Above high normal <content [facility] styleCode="Bold" Micah >Protime Medical </content>13.2 Center SEC H<content styleCode="Itali cs"> (9.0-13.0 SEC)</content> INR in 0.80-1.2 <content [facility] Platelet poor 0 styleCode="Bold" Micah plasma by >INR Medical Coagulation </content>1.19 Center assay #<content styleCode="Itali cs"> (0.80-1.20 #)</content> aPTT in 25.1-36. Above high normal <content [facility] Platelet poor 5 styleCode="Bold" Micah plasma by >Partial Medical Coagulation Thromboplastin Center assay Time </content>36.6 SEC H<content styleCode="Itali cs"> (25.1-36.5 SEC)</content> ID Date Data Source [facility].[id number] 11/03/2019 07:00:00 PM EST [facility] Center Name Value Range Interpretation Description Data Sup porting Code Source(s) Document(s ) Sodium 137-145 <content [facility] [Moles/volume] styleCode="Robinson Micah in Serum or d">Sodium Medical Plasma </content>139 Center MEQ/L<content styleCode="Elen lics"> (137-145 MEQ/L)</conten t> Potassium 3.5-5.3 <content [facility] [Moles/volume] styleCode="Robinson Micah in Serum or d">Potassium Medical Plasma </content>4.1 Center MEQ/L<content styleCode="Elen lics"> (3.5-5.3 MEQ/L)</conten t> UNK 9-20 <content [facility] styleCode="Robinson Micah d">BUN Medical </content>12 Center MG/DL<content styleCode="Elen lics"> (9-20 MG/DL)</conten t> Glucose 74-106 <content [facility] [Mass/volume] styleCode="Robinson Micah in Serum or d">Glucose Medical Plasma </content>88 Center MG/DL<content styleCode="Elen lics"> (74-106 MG/DL)</conten t> Creatinine 0.5-1.3 <content [facility] [Mass/volume] styleCode="Robinson Micah in Serum or d">Creatinine Medical Plasma </content>0.9 Center MG/DL<content styleCode="Elen lics"> (0.5-1.3 MG/DL)</conten t> Carbon 22-30 <content [facility] dioxide, total styleCode="Robinson Micah [Moles/volume] d">Carbon Medical in Serum or Dioxide Center Plasma </content>28 MEQ/L<content styleCode="Elen lics"> (22-30 MEQ/L)</conten t> Chloride 98-107 <content [facility] [Moles/volume] styleCode="Robinson Micah in Serum or d">Chloride Medical Plasma </content>102 Center MEQ/L<content styleCode="Elen lics"> (98-107 MEQ/L)</conten t> UNK > 60 <content [facility] styleCode="Robinson Micah d">EGFR Medical </content>114 Center GFR<content styleCode="Elen lics"> (> 60 GFR)</content> Calcium 8.4-10.2 <content [facility] [Mass/volume] styleCode="Robinson Micah in Serum or d">Calcium Medical Plasma </content>9.5 Center MG/DL<content styleCode="Elen lics"> (8.4-10.2 MG/DL)</conten t> ID Date Data Source [id number] 06/29/2019 12:16:00 PM EDT [facility] ([facility]) Name Value Range Interpretation Description Data Source(s ) Supporting Code Document(s ) No Urine TNP No Urine MARCIAL ([facility]) Note: No urine specimen received. T EST: [id number]-Bund ID Date Data Source [id number] 06/29/2019 12:16:00 PM EDT MARCIAL ([facility]) Name Value Range Interpretation Description Data Sup porting Code Source(s) Document(s ) Triiodothyronine 3.1 Triiodothyronine GREEN AY (T3) Free pg/mL (T3), Free ([place] [Mass/volume] in [facility] Serum or Plasma [facility] Center) ID Date Data Source [id number] 06/29/2019 12:16:00 PM EDT [place] ([facility]) Name Value Range Interpretation Description Data Source(s ) Supporting Code Document(s ) Bacteria No growth Result 1 MARCIAL identified in ([place] Urine by [facility] Culture [facility]) Bacteria Final Urine MARCIAL identified in report Culture, ([place] Urine by Routine [facility] Culture [facility]) ID Date Data Source [id number] 06/29/2019 12:16:00 PM EDT [place] ([facility]) Name Value Range Interpretation Description Data Source(s ) Supporting Code Document(s ) 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 Equivocal may suggest early infection. If clinically appropriate , retest at later date. Positive indicates antibodies detected to HSV-2 . ID Date Data Source [id number] 06/29/2019 12:16:00 PM EDT [place] ([facility]) Name Value Range Interpretation Description Data Source(s ) Supporting Code Document(s ) HIV 1+2 Non HIV Screen MARCIAL Ab+HIV1 p24 Reactive 4th ([place] Ag [Presence] Generation Neighborhood in Serum or wRfx [facility]) Plasma by Immunoassay ID Date Data Source [id number] 06/29/2019 12:16:00 PM EDT [place] ([facility]) Name Value Range Interpretation Description Data Source(s ) Supporting Code Document(s ) Prostate 2.0 Prostate MARCIAL ([place] specific Ag ng/mL Specific Ag, Kvng [Mass/volum Serum Neighborhood e] in Serum [facility]) or Plasma Note: [place] ECLIA methodology.According to the [place] [employer], Serum PSA shoulddecrease and remain at undetec table levels after radicalprostatectomy. The AUA defines biochemical recurrence as an initialPSA value 0.2 ng/mL or greater followed by a subsequent confirmatoryPSA value 0.2 ng/mL or greater.Values obtained with different assay methods or kits can not be usedinterchangeably. Results cannot be interpreted as absolute evidenceof the p resence or absence of malignant disease. ID Date Data Source [id number] 06/29/2019 12:16:00 PM EDT [place] ([facility]) Name Value Range Interpretation Description Data Source(s ) Supporting Code Document(s ) Thyrotropin 2.300 TSH MARCIAL ([place] [Units/volume] uIU/mL [place] in Serum or Neighborhood Plasma by [facility]) Detection limit <= 0.05 mIU/L ID Date Data Source [id number] 06/29/2019 12:16:00 PM EDT MARCIAL ([facility]) Name Value Range Interpretation Description Data Source(s ) Supporting Code Document(s ) Thyroxine 0.93 T4,Free(Direct MARCIAL ([place] (T4) free ng/dL ) Kvng [Mass/volume Neighborhood ] in [facility]) or Plasma ID Date Data Source [id number] 06/29/2019 12:16:00 PM EDT [place] ([facility]) Name Value Range Interpretation Description Data Source(s ) Supporting Code Document(s ) Hemoglobin 6.4 % Above high normal Hemoglobin A1c [facility] NATALIE ([place] A1c/Hemoglobi Kvng n.total in [facility] Blood [facility]) Note: Prediabetes: 5.7 - 6.4 Diabetes: >6.4 Glycemic control for adults with diabetes: <7.0 ID Date Data Source [id number] 06/29/2019 12:16:00 PM EDT MARCIAL ([facility]) Name Value Range Interpretation Description Data Source(s ) Supporting Code Document(s ) Trichomonas Negative Trich vag by MARCIAL vaginalis rRNA AURELIO ([place] [Presence] in [facility]) specimen by Probe and target amplification method ID Date Data Source [id number] 06/29/2019 12:16:00 PM EDT MARCIAL ([facility]) Name Value Range Interpretation Description Data Source(s ) Supporting Code Document(s ) Chlamydia Negative Chlamydia MARCIAL trachomatis trachomatis, ([place] rRNA [Presence] AURELIO Neighborhood in [facility]) specimen by Probe and target amplification method Neisseria Negative Neisseria MARCIAL gonorrhoeae gonorrhoeae, ([place] rRNA [Presence] AURELIO Neighborhood in [facility]) specimen by Probe and target amplification method ID Date Data Source [id number] 06/29/2019 12:16:00 PM EDT MARCIAL ([facility]) Name Value Range Interpretation Description Data Source(s ) Supporting Code Document(s ) Triglyceride 80 Triglycerides MARCIAL [Mass/volume] mg/dL ([place] in Serum or [facility] Plasma [facility]) Cholesterol 126 Cholesterol, MARCIAL [Mass/volume] mg/dL Total ([place] in Serum or ) Cholesterol in 32 Below low normal HDL Cholesterol GR EENWAY HDL mg/dL ([place] [Mass/volume] [facility] in Serum or [facility]) Plasma Laboratory N/A Comment: MARCIAL comment [Text] (Vielka Calderon in Report [facility]) Cholesterol in 2.4 LDL/HDL Ratio MARCIAL LDL/Cholestero ratio ([place] l in HDL [Mass Neighborhood Ratio] in [facility]) Serum or Plasma Note: LDL/HDL Ratio Men Women 1/2 Avg.Risk 1.0 1.5 Avg.Risk 3.6 3.2 2X Avg.Risk 6.2 5.0 3X Avg.Risk 8.0 6.1 Cholesterol in VLDL 16 mg/dL VLDL Cholesterol Jeronimo MARCIAL ([place] [Mass/volume] in Serum or [facility] Plasma by calculation Center) Cholesterol in LDL 78 mg/dL LDL Cholesterol Calc MARCIAL ([place] [Mass/volume] in Serum or [facility] Plasma by calculation Center) ID Date Data Source [id number] 06/29/2019 12:16:00 PM EDT MARICAL ([facility]) Name Value Range Interpretation Description Data Sup porting Code Source(s) Document(s ) Calcium 8.9 Calcium MARCIAL [Mass/volume] in mg/dL ([place] Serum or Plasma [facility]) Urea nitrogen 8 mg/dL BUN MARCIAL [Mass/volume] in ([facility] or [facility]) Glucose 93 Glucose MARCIAL [Mass/volume] in mg/dL ([facility] or [facility]) Albumin 4.5 Albumin MARCIAL [Mass/volume] in g/dL ([facility] or [facility]) Bilirubin.total 0.3 Bilirubin, MARCIAL [Mass/volume] in mg/dL Total ([facility] or [facility]) Protein 7.3 Protein, MARCIAL [Mass/volume] in g/dL Total ([facility] or [facility]) Aspartate 19 IU/L AST (SGOT) MARCIAL aminotransferase ([place] [Enzymatic Neighborhood activity/volume] [facility] in Serum or [facility]) Alkaline 87 IU/L Alkaline MARCIAL phosphatase Phosphatase ([place] [Enzymatic [facility] activity/volume] [facility] in Serum or Plasma [place]) Sodium 143 Sodium MARCIAL [Moles/volume] in mmol/L ([facility] or [facility]) Potassium 4.4 Potassium MARCIAL [Moles/volume] in mmol/L ([facility] or [facility]) Chloride 105 Chloride MARCIAL [Moles/volume] in mmol/L ([facility] or [facility] Creatinine 0.85 Creatinine MARCIAL [Mass/volume] in mg/dL ([facility] or [facility]) Carbon dioxide, 23 Carbon MARCIAL total mmol/L Dioxide, ([place] [Moles/volume] in Total [facility] Serum or [facility]) Urea 9 BUN/Creatinin MARCIAL nitrogen/Creatinin e Ratio ([facility] on e [Mass Ratio] in [facility] or [facility]) Alanine 27 IU/L ALT (SGPT) MARCIAL aminotransferase ([place] [Enzymatic [facility] activity/volume] [facility] in Serum or [facility]) Albumin/Globulin 1.6 A/G Ratio MARCIAL [Mass Ratio] in ([facility] or [facility]) Globulin 2.8 Globulin, MARCIAL [Mass/volume] in g/dL Total ([place] Serum by ) eGFR If Africn Am 117 eGFR If MARCIAL mL/min/ Africn Am ([address]) eGFR If NonAfricn 101 eGFR If MARCIAL Am mL/min/ NonAfricn Am ([address]) ID Date Data Source [id number] 06/29/2019 12:16:00 PM EDT MARCIAL ([facility]) Name Value Range Interpretation Description Data Sup porting Code Source(s) Document(s ) Benzodiazepines TNP Benzodiazepines MARCIAL [Presence] in ([facility]) Note: Test not performed Benzoylecgonine [Presence] in TNP Cocaine (M etab.) MARCIAL ([facility]) Note: Test not performed Opiates [Presence] in Urine TNP Opiates GR EENWAY ([facility]) Note: Test not performed Phencyclidine [Presence] in TNP Phencyclidin e MARCIAL ([facility]) Note: Test not performed Barbiturates [Presence] in Urine TNP Barbitu rate MARCIAL ([place] by Screen method [facility]) Note: Test not performed Cannabinoids [Presence] in Urine TNP Cannabi noid MARCIAL ([place] by Screen method [facility]) Note: Test not performed Propoxyphene [Presence] in TNP Propoxyphene, Urine MARCIAL ([facility]) Note: Test not performed Ethanol [Mass/volume] in Urine TNP Ethanol, Urine MARCIAL ([facility]) Note: Test not performed Amphetamines [Presence] TNP ng/mL Amphetamines, Ur ine MARCIAL ([place] in Urine by Screen method [facility]) Note: No urine specimen received.Ampheta mine test includes Amphetamine and Methamphetamine. Methadone [Presence] in TNP Methadone Screen , Urine MARCIAL ([place] Urine by Screen method [facility]) Note: Test not performed Procedure Social History Code Duration Value Status Description Data Source(s ) Smoking 11/06/2019 Daily Smoker completed Daily Smoker [facility] 02:18:00 PM EST Medical C enter Smoking 11/06/2019 Daily Smoker completed Daily Smoker [facility] 12:54:00 PM EST Medical C enter Smoking 11/04/2019 Daily Smoker completed Daily Smoker [facility] 02:02:00 PM EST Medical C enter Smoking 11/04/2019 Daily Smoker completed Daily Smoker [facility] 12:23:00 AM EST Medical C enter Smoking 11/04/2019 Daily Smoker completed Daily Smoker [facility] 12:04:00 AM EST Medical C enter Smoking 11/03/2019 Daily Smoker completed Daily Smoker [facility] 06:53:00 PM EST Medical C enter Smoking 11/03/2019 Daily Smoker completed Daily Smoker [facility] 06:29:00 PM EST Medical C enter Smoking 11/03/2019 Smokes tobacco completed Smokes tobacco GREENW AY ([facility] 04:28:24 PM EST daily daily (finding) Fabio on [facility] ([facility]) [facility] [place]) Smoking 07/07/2019 smoking status completed MARCIAL ( [facility] 02:12:38 PM EDT [facility] Smoking 06/29/2019 Smokes tobacco completed Smokes tobacco GREEN[place] AY ([facility] 11:28:49 AM EDT daily daily (finding) Fabio on [facility] ([facility]) [facility]) Vital Signs ID Date Data Source UNK Name Value Range Interpretation Code Description Data Source(s) PhenX - pain, 0 0 MARCIAL ([facility] abdominal - type [facility]) protocol Patient is here to get refills on meds Body surface area Derived from 2.15 m2 2.15 m2 MARCIAL ([facility]) Patient is here to get refills on meds Body mass index (BMI) 32.5 kg/m2 32.5 kg/m2 GRE ENWAY ([place] [Ratio] [facility]) Patient is here to get refills on meds Body weight 220.05 [lb_av] 220.05 [lb_av] GREEN WAY ([facility]) Patient is here to get refills on meds Body height 69 [in_us] 69 [in_us] MARCIAL ([facility]) Patient is here to get refills on meds Body temperature 97.2 [degF] 97.2 [degF] GREENEl AY ([facility]) Patient is here to get refills on meds Heart rate rhythm 1 1 GREENWA Y ([facility]) Patient is here to get refills on meds Heart rate 87 /min 87 /min MARCIAL ([facility]) Patient is here to get refills on meds Diastolic blood pressure 77 mm[Hg] 77 mm[Hg] MARCIAL ([facility]) Patient is here to get refills on meds Systolic blood pressure 122 mm[Hg] 122 mm[Hg] G REENWAY ([facility]) Patient is here to get refills on meds PhenX - pain, abdominal - type and 0 0 MARCIAL ([facility]) Pt follow ups labs Body surface area Derived from 2.18 m2 2.18 m2 MARCIAL ([facility]) Pt follow ups labs Body mass index (BMI) 33.7 kg/m2 33.7 kg/m2 [facility] ([place] [[facility]] [facility]) Pt follow ups labs Body weight 228 [lb_av] 228 [lb_av] MARCIAL ([facility]) Pt follow ups labs Body height 69 [in_us] 69 [in_us] MARCIAL ([facility]) Pt follow ups labs Body temperature 98 [degF] 98 [degF] MARCIAL ([facility]) Pt follow ups labs Heart rate 71 /min 71 /min [place] ([facility]) Pt follow ups labs Diastolic blood pressure 82 mm[Hg] 82 mm[Hg] [place] ([facility]) Pt follow ups labs Systolic blood pressure 126 mm[Hg] 126 mm[Hg] G REENWAY ([facility]) Pt follow ups labs PhenX - pain, abdominal - type and 0 0 MARCIAL ([facility]) Routne examination and refills meds Body surface area Derived from 2.06 m2 2.06 m2 MARCIAL ([facility]) Routne examination and refills meds Body mass index (BMI) 29.2 kg/m2 29.2 kg/m2 [facility] ([place] [[facility]] [facility]) Routne examination and refills meds Body weight 198 [lb_av] 198 [lb_av] MARCIAL ([facility]) Routne examination and refills meds Body height 69 [in_us] 69 [in_us] MARCIAL ([facility]) Routne examination and refills meds Body temperature 228.9 [degF] 228.9 [degF] ASHA NWNATALIE ([facility]) Routne examination and refills meds Heart rate 84 /min 84 /min MARCIAL ([facility]) Routne examination and refills meds Diastolic blood pressure 88 mm[Hg] 88 mm[Hg] MARCIAL ([facility]) Routne examination and refills meds Systolic blood pressure 134 mm[Hg] 134 mm[Hg] G REENWAY ([facility]) Routne examination and refills meds Heart rate 66 /min 66 /min MARCIAL ([facility]) BP rechecked Diastolic blood pressure 83 mm[Hg] 83 mm[Hg] MARCIAL ([facility]) BP rechecked Systolic blood pressure 131 mm[Hg] 131 mm[Hg] [facility] ([facility]) BP rechecked PhenX - pain, abdominal - type and 7 7 MARCIAL ([facility]) Pt presents today with c/o left shoulder pain, neck apin, left arm numbness for 1 week Body surface area Derived from 2.16 m2 2.16 m2 MARCIAL ([facility]) Pt presents today with c/o left shoulder pain, neck apin, left arm numbness for 1 week Body mass index (BMI) 32.9 kg/m2 32.9 kg/m2 GRE ENWAY ([place] [Ratio] [facility]) Pt presents today with c/o left shoulder pain, neck apin, left arm numbness for 1 week Body weight 223 [lb_av] 223 [lb_av] MARCIAL ([facility]) Pt presents today with c/o left shoulder pain, neck apin, left arm numbness for 1 week Body height 69 [in_us] 69 [in_us] MARCIAL ([facility]) Pt presents today with c/o left shoulder pain, neck apin, left arm numbness for 1 week Body temperature 98.5 [degF] 98.5 [degF] GREENW AY ([facility]) Pt presents today with c/o left shoulder pain, neck apin, left arm numbness for 1 week Heart rate 73 /min 73 /min MARCIAL ([facility]) Pt presents today with c/o left shoulder pain, neck apin, left arm numbness for 1 week Diastolic blood pressure 102 mm[Hg] 102 mm[Hg] MARCIAL ([facility]) Pt presents today with c/o left shoulder pain, neck apin, left arm numbness for 1 week Systolic blood pressure 159 mm[Hg] 159 mm[Hg] G ALENA ([facility]) Pt presents today with c/o left shoulder pain, neck apin, left arm numbness for 1 week Body weight Measured 100.195232 kg 100.171651 k g [facility] Body temperature 36.110926 Juliette 36.978123 Juliette [facility] Respiratory rate 18 /min 18 /min [facility] Oxygen saturation in 97 % 97 % [facility] Arterial blood by Pulse C enter oximetry Heart rate 70 /min 70 /min [facility] Body height 170.519042 cm 170.157168 cm [facility] Diastolic blood pressure 80 mm[Hg] 80 mm[Hg] [facility] Systolic blood pressure 140 mm[Hg] 140 mm[Hg] [facility] Body mass index (BMI) 34.5 kg/m2 34.5 kg/m2 [facility] [Ratio] [place] Body weight Measured 101.025705 kg 101.671707 k g [facility] Body height 170.887125 cm 170.362836 cm [facility] Body mass index (BMI) 35.08 kg/m2 35.08 kg/m2 [facility] [Ratio] [place] Body temperature 36.276379 Juliette 36.892544 Juliette [facility] Respiratory rate 18 /min 18 /min [facility] Heart rate 67 /min 67 /min [facility] Diastolic blood pressure 79 mm[Hg] 79 mm[Hg] [facility] Systolic blood pressure 134 mm[Hg] 134 mm[Hg] [facility] Body temperature 36.637854 Juliette 36.578983 Juliette [facility] Respiratory rate 18 /min 18 /min [facility] Oxygen saturation in 97 % 97 % [facility] Arterial blood by Pulse C enter oximetry Heart rate 78 /min 78 /min [facility] Diastolic blood pressure 78 mm[Hg] 78 mm[Hg] [facility] Systolic blood pressure 116 mm[Hg] 116 mm[Hg] [facility] Body temperature 36.680878 Juliette 36.245465 Juliette [facility] Respiratory rate 18 /min 18 /min [facility] Heart rate 77 /min 77 /min [facility] Diastolic blood pressure 95 mm[Hg] 95 mm[Hg] [facility] Systolic blood pressure 154 mm[Hg] 154 mm[Hg] [facility] Body temperature 37.804063 Juliette 37.736372 Juliette [facility] Respiratory rate 16 /min 16 /min [facility] Heart rate 60 /min 60 /min [facility] Diastolic blood pressure 86 mm[Hg] 86 mm[Hg] [facility] Systolic blood pressure 121 mm[Hg] 121 mm[Hg] [facility] Body weight Measured 101.812940 kg 101.635512 k g [facility] Body height 170.162112 cm 170.501719 cm [facility] Body mass index (BMI) 35.08 kg/m2 35.08 kg/m2 [facility] [Ratio] [place] Body weight Measured 101.837658 kg 101.463157 k g [facility] Body temperature 36.077763 Juliette 36.473660 Juliette [facility] Respiratory rate 18 /min 18 /min [facility] Oxygen saturation in 96 % 96 % [facility] Arterial blood by Pulse C enter oximetry Heart rate 61 /min 61 /min [facility] Body height 170.144098 cm 170.872519 cm [facility] Diastolic blood pressure 72 mm[Hg] 72 mm[Hg] [facility] Systolic blood pressure 125 mm[Hg] 125 mm[Hg] [facility] Body mass index (BMI) 35.08 kg/m2 35.08 kg/m2 [facility] [Ratio] [place] Oxygen saturation in 96 % 96 % [facility] Arterial blood by Pulse C enter oximetry Body temperature 37.154090 Juliette 37.666594 Juliette [facility] Respiratory rate 17 /min 17 /min [facility] Heart rate 66 /min 66 /min [facility] Diastolic blood pressure 69 mm[Hg] 69 mm[Hg] [facility] Systolic blood pressure 126 mm[Hg] 126 mm[Hg] [facility] Oxygen saturation in 100 % 100 % [facility] Arterial blood by Pulse C enter oximetry Body temperature 37.570808 Juliette 37.028799 Juliette [facility] Respiratory rate 18 /min 18 /min [facility] Heart rate 64 /min 64 /min [facility] Diastolic blood pressure 80 mm[Hg] 80 mm[Hg] [facility] Systolic blood pressure 128 mm[Hg] 128 mm[Hg] S [facility] Body weight Measured 101.136063 kg 101.362857 k g [facility] Oxygen saturation in 99 % 99 % [facility] Arterial blood by Pulse C enter oximetry Body height 170.699438 cm 170.426477 cm [facility] Body mass index (BMI) 35.0 kg/m2 35.0 kg/m2 [facility] [Ratio] [place] PhenX - pain, abdominal - 10 10 MARCIAL ([facility]) protocol Pt has a large red bump underarm (very painful) Body surface area Derived from 2.17 m2 2.17 m2 MARCIAL ([facility]) Pt has a large red bump underarm (very painful) Body mass index (BMI) 33.1 kg/m2 33.1 kg/m2 GRE ENWAY ([place] [Ratio] [facility]) Pt has a large red bump underarm (very painful) Body weight 224 [lb_av] 224 [lb_av] MARCIAL ([facility]) Pt has a large red bump underarm (very painful) Body height 69 [in_us] 69 [in_us] MARCIAL ([facility]) Pt has a large red bump underarm (very painful) Body temperature 98.2 [degF] 98.2 [degF] [place] ([facility]) Pt has a large red bump underarm (very painful) Heart rate 71 /min 71 /min MARCIAL ([facility]) Pt has a large red bump underarm (very painful) Diastolic blood pressure 79 mm[Hg] 79 mm[Hg] MARCIAL ([facility]) Pt has a large red bump underarm (very painful) Systolic blood pressure 116 mm[Hg] 116 mm[Hg] [facility]) Pt has a large red bump underarm (very painful) PhenX - pain, abdominal - type and 0 0 MARCIAL ([facility]) Pt is here for lab results. Body surface area Derived from 2.15 m2 2.15 m2 [place] ([facility]) Pt is here for lab results. Body mass index (BMI) 32.5 kg/m2 32.5 kg/m2 [facility] ([place] [[facility]] [facility]) Pt is here for lab results. Body weight 220 [lb_av] 220 [lb_av] MARCIAL ([facility]) Pt is here for lab results. Body height 69 [in_us] 69 [in_us] MARCIAL ([facility]) Pt is here for lab results. Body temperature 97.8 [degF] 97.8 [degF] [facility] ([facility]) Pt is here for lab results. Heart rate 80 /min 80 /min [place] ([facility]) Pt is here for lab results. Diastolic blood pressure 84 mm[Hg] 84 mm[Hg] [place] ([facility]) Pt is here for lab results. Systolic blood pressure 125 mm[Hg] 125 mm[Hg] [facility] ([facility]) Pt is here for lab results. PhenX - pain, abdominal - type and 0 0 [place] ([facility]) Pt is here for Complet physical exam. Body surface area Derived from 2.15 m2 2.15 m2 [place] ([facility]) Pt is here for Complet physical exam. Body mass index (BMI) 32.3 kg/m2 32.3 kg/m2 [facility] ([place] [[facility]] [facility]) Pt is here for Complet physical exam. Body weight 219 [lb_av] 219 [lb_av] MARCIAL ([facility]) Pt is here for Complet physical exam. Body height 69 [in_us] 69 [in_us] MARCIAL ([facility]) Pt is here for Complet physical exam. Body temperature 98.5 [degF] 98.5 [degF] GREEN[place] AY ([facility]) Pt is here for Complet physical exam. Heart rate 68 /min 68 /min MARCIAL ([facility]) Pt is here for Complet physical exam. Diastolic blood pressure 76 mm[Hg] 76 mm[Hg] MARCIAL ([facility]) Pt is here for Complet physical exam. Systolic blood pressure 115 mm[Hg] 115 mm[Hg] G REENWAY ([facility]) Pt is here for Complet physical exam. Patient Treatment Plan of Care Planned Activity Planned Date Details Description Data Source (s) Lovastatin 20 MG Oral 05/30/2020 GREENW AY ([place] Tablet 12:00:00 AM [facility]) Metformin hydrochloride 05/30/2020 GREE NWAY ([place] 500 MG Oral Tablet 12:00:00 AM [facility]) Lisinopril 2.5 MG Oral 05/30/[address] ([place] Tablet 12:00:00 AM [facility]) Lancets Thin 05/30/2020 MARCIAL ([place] Miscellaneous 12:00:00 AM [facility]) Lancets Thin 03/26/2020 MARCIAL ([place] Miscellaneous 12:00:00 AM [facility]) Metformin hydrochloride 03/26/2020 GREE NWAY ([place] 500 MG Oral Tablet 12:00:00 AM [facility]) Lovastatin 20 MG Oral 03/26/2020 GREENW AY ([place] Tablet 12:00:00 AM [facility]) Lisinopril 2.5 MG Oral 03/26/[address] ([place] Tablet 12:00:00 AM [facility]) Blood Glucose Test In 03/26/2020 GREENW AY ([place] Vitro Strip 12:00:00 AM [facility]) Alcohol Pads 70% 03/26/2020 MARCIAL ([facility] 12:00:00 AM [facility]) Lisinopril 2.5 MG Oral 12/21/[address] ([place] Tablet 12:00:00 AM [facility]) Lovastatin 20 MG Oral 12/21/2019 GREENW AY ([place] Tablet 12:00:00 AM [facility]) Metformin hydrochloride 12/21/2019 GREE NWAY ([place] 500 MG [facility] Tablet [facility]) Lancets Thin 12/21/2019 MARCIAL ([place] Miscellaneous 12:00:00 AM [facility]) Alcohol Pads 70% 12/21/2019 MARCIAL ([facility] 12:00:00 AM [facility]) Blood Glucose Test In 12/21/2019 GREENW AY ([place] Vitro Strip 12:00:00 AM [facility]) Ibuprofen 800 MG Oral 11/03/2019 GREENW AY ([place] Tablet 12:00:00 AM [facility]) Bactrim DS 800-160MG 11/03/2019 GREENWA Y ([place] Oral Tablet 12:00:00 AM [facility]) Lovastatin 20 MG Oral 07/07/2019 GREENW AY ([place] Tablet 12:00:00 AM [facility]) Lisinopril 2.5 MG Oral 07/07/[address] ([place] Tablet 12:00:00 AM [facility]) Metformin hydrochloride 07/07/2019 GREE NWAY ([place] 500 MG Oral Tablet 12:00:00 AM [facility]) Blood Glucose Test In 06/29/2019 GREENW AY ([place] Vitro Strip 12:00:00 AM [facility]) Lancets Thin 06/29/2019 MARCIAL ([place] Miscellaneous 12:00:00 AM [facility]) Blood Glucose Monitor 06/29/2019 GREENW AY ([place] System w/Device Kit 12:00:00 AM [facility]) cetirizine hydrochloride 06/29/2019 GRE ENWAY ([place] 10 MG Oral Tablet 12:00:[address] [facility]) RA Tussin Cough DM Sugar 06/29/2019 GRE ENWAY ([place] Free 100-10MG/[facility] Alcohol Pads 70% 06/29/2019 MARCIAL ([facility] 12:00:00 AM [facility]) Systane 0.4-0.3% 03/02/2019 MARCIAL (M [facility] Kvng Ophthalmic Solution 12:00:00 AM [facility]) Lovastatin 20 MG Oral 02/09/2019 NICKI ESTRADA ([place] Tablet 12:00:00 AM [facility]) Lisinopril 2.5 MG Oral 02/09/2019 GONZALO BURTON ([place] Tablet 12:00:00 AM [facility]) Metformin hydrochloride 02/09/2019 ASHA WRIGHT ([place] 500 MG Oral Tablet 12:00:00 AM [facility])
--- NOTE | 2020-08-23 20:35 | PDOC ---
History of Present Illness - General Chief Complaint: Pain, Acute Stated Complaint: ABD PAIN Time Seen by Provider: 08/23/20 20:04 History Source: Patient Exam Limitations: No Limitations - History of Present Illness Initial Comments: 08/23/20 20:31 HISTORY OF PRESENT ILLNESS: 55-year-old male with past medical history of hyperlipidemia, hypertension, NIDDM who presents to the emergency department for evaluation of pain to his costal margin on the left side status post sneezing. Patient states he felt like he had to sneeze and tried to stop the sneeze from happening when he felt a "popping sensation" in his left rib. He reports this incident happened around 230 and has had continued pain since the initial injury. He denies any chest pain, shortness of breath, nausea, vomiting or abdominal pain. No recent travel or sick contacts. PAST MEDICAL HISTORY: Hyperlipidemia, hypertension, dxm-[id number] diabetes SURGICAL HISTORY: Denies ALLERGIES: No known drug allergies REVIEW OF SYSTEMS General/Constitutional: Denies fever or chills. Denies weakness, weight change. HEENT: Denies change in vision. Denies ear pain or discharge. Denies sore throat. Cardiovascular: Denies chest pain or shortness of breath. Respiratory: Denies cough, wheezing, or hemoptysis. Gastrointestinal: See HPI Genitourinary: Denies dysuria, frequency, or change in urination. Musculoskeletal: Denies joint or muscle swelling or pain. Denies neck or back pain. Skin and breasts: Denies rash or easy bruising. Neurologic: Denies headache, vertigo, loss of consciousness, or loss of sen sation. Psychiatric: Denies depression or anxiety. Endocrine: Denies increased thirst. Denies abnormal weight change. Hematologic/Lymphatic: Denies anemia, easy bleeding, or history of blood clots. Allergic/Immunologic: Denies hives or skin allergy. Denies latex allergy. PHYSICAL EXAM General Appearance: Well-appearing, appropriately dressed. No apparent distress, no intoxication. Respiratory/Chest: Lungs CTAB. No shortness of breath, chest tenderness, respiratory distress, accessory muscle use. No crackles, rales, rhonchi, stridor, wheezing, dullness Cardiovascular: RRR. S1, S2. No JVD, murmur, bradycardia, tachycardia. Gastrointestinal/Abdominal: Normal bowel sounds. Abdomen soft, non-distended. No tenderness or rebound tenderness. No organomegaly, pulsatile mass, guarding, hepatomegaly, splenomegaly. Umbilical hernia noted which is easily reducible. Integumentary: Appropriate color, dry, warm. No cyanosis, erythema, jaundice or rash Past History - Medical History Allergies/Adverse Reactions: Allergies Allergy/AdvReac Type Severity Reaction Status Date / Time No Known Allergies Allergy Verified 04/16/20 12:16 Home Medications: Ambulatory Orders metFORMIN HCL [Glucophage -] 500 mg PO BID 07/18/13 Cholecalciferol (Vitamin D3) [Vitamin D -] 2,000 unit PO DAILY 04/13/20 Lisinopril [Zestril] 2.5 mg PO DAILY 04/13/20 Lovastatin 20 mg PO DAILY 04/13/20 Multivit-Min/FA/Lycopen/Lutein [Centrum Silver Men Tablet] 1 each PO DAILY 04/13/20 Apixaban [Eliquis -] 5 mg PO BID #60 tablet 04/14/20 Metoprolol Succinate [Toprol XL -] 12.5 mg PO DAILY #30 tab.sr.24h 04/14/20 COPD: No Diabetes: Yes HTN: Yes Hypercholesterolemia: Yes - Surgical History Orthopedic Surgery: Yes (Back, Bilateral Hips) - Immunization History Immunization Up to Date: Yes - Psycho-Social/Smoking History Smoking Status: No Smoking History: Current every day smoker Have you smoked in the past 12 months: Yes Number of Cigarettes Smoked Daily: 4 Information on smoking cessation initiated: No 'Breaking Loose' booklet given: 07/18/13 - Substance Abuse Hx (Audit-C & DAST Scrn) How often the patient has a drink containing alcohol: Never Score: In Men: 4 or > Positive; In Women: 3 or > Positive: 0 Screen Result (Pos requires Nsg. Audit-10AR): Negative In the last yr the pt used illegal drug/Rx for NonMed reason: No Score: Yes response is considered Positive: 0 Screen Result (Positive result requires Nsg. DAST-10): Negative *Physical Exam - Vital Signs Last Vital Signs Temp Pulse Resp BP Pulse Ox 98.5 F 84 19 137/91 97 08/23/20 19:43 08/23/20 19:43 08/23/20 19:43 08/23/20 19:43 08/23/20 19:43 ED Treatment Course - RADIOLOGY Radiology Studies Ordered: Category Date Time Status CHEST PA & LAT [RAD] Stat Radiology 08/23/20 20:25 Ordered Medical Decision Making - Medical Decision Making 08/23/20 20:34 A/P: 55-year-old male with costal pain on his left side status post sneezing incident Lung sounds within normal limits Abdominal exam is grossly normal with the exception of previous umbilical hernia which is easily reducible Chest x-ray Likely discharge home 08/23/20 20:53 Chest x-ray as read by me: Holli alonzo. Cardiac silhouette is within normal limits. Lung bob clear without evidence of consolidation or infiltrate. No pneumothorax is noted. While discussing results with patient he requested a COVID-19 test. Counseling regarding COVID-19 has been provided to the patient at the time of the test. Patient is aware that the test results will take 48 to 72 hours to get results. Discharge home with instructions to take Tylenol and NSAIDs for pain management as this is likely muscle strain I discussed the physical exam findings, ancillary test results and final diagnoses with the patient. I answered all of the patient's questions. The patient was satisfied with the care received and felt comfortable with the discharge plan and treatment plan. The patient will call their primary care physician within 24 hours to arrange follow-up and will return to the Emergency Department with any new, persistent or worsening symptoms. Portions of this note have been documented using voice recognition software. As a result, errors may occur in the pottery kiln builder process. Effort has been made to correct all grammatical and pottery kiln builder error, but some may have been missed which may produce sporadic inaccurate pottery kiln builder or nonsensical phrases. 08/23/20 21:01 Discharge - Discharge Information Problems reviewed: Yes Clinical Impression/Diagnosis: Counseled about COVID-19 virus infection Intercostal muscle strain Qualifiers: Encounter type: initial encounter Qualified Code(s): S29.011A - Strain of muscle and tendon of front wall of thorax, initial encounter Condition: Stable Disposition: HOME - Admission No - Follow up/Referral Referrals: Idris Barroso [Primary Care Provider] - - Patient Discharge Instructions Additional Instructions: Your chest x-ray today showed no significant abnormalities there was no change from study performed in March of this year. Take Tylenol or Motrin as needed for pain. Follow manufactures instructions for appropriate dosage. Emergency department visit is incomplete until you follow-up with your primary doctor. Return to the emergency department for shortness of breath, severe chest pain, nausea, vomiting or for any other symptoms. Thank you very much for choosing us to provide your emergent health care needs. - Post Discharge Activity
[2020-08-23 20:36] VITALS: BP 137/91; PULSE 84; TEMP 98.5; BMI 32.8
--- NOTE | 2020-08-23 22:08 | PDOC ---
*Physical Exam - Vital Signs Last Vital Signs Temp Pulse Resp BP Pulse Ox 98.5 F 84 19 137/91 97 08/23/20 19:43 08/23/20 19:43 08/23/20 19:43 08/23/20 19:43 08/23/20 19:43 Medical Decision Making - Medical Decision Making 08/23/20 22:08 Case reviewed, agree with assessment and plan Discharge - Discharge Information Problems reviewed: Yes Clinical Impression/Diagnosis: Counseled about COVID-19 virus infection Intercostal muscle strain Qualifiers: Encounter type: initial encounter Qualified Code(s): S29.011A - Strain of muscle and tendon of front wall of thorax, initial encounter Condition: Stable Disposition: HOME - Follow up/Referral Referrals: Idris Barroso [Primary Care Provider] - - Patient Discharge Instructions Additional Instructions: Your chest x-ray today showed no significant abnormalities there was no change from study performed in March of this year. Take Tylenol or Motrin as needed for pain. Follow manufactures instructions for appropriate dosage. Emergency department visit is incomplete until you follow-up with your primary doctor. Return to the emergency department for shortness of breath, severe chest pain, nausea, vomiting or for any other symptoms. Thank you very much for choosing us to provide your emergent health care needs. - Post Discharge Activity
== END 2020-08-23 21:06 | disposition home or self-care (01) ==
LOC: JER 19:39
DX: S29.011A Strain of muscle and tendon of front wall of thorax, initial encounter (principal); Z11.59 Encounter for screening for other viral diseases
CPT/HCPCS: 71046-TC-FY; 99284-25; C9803; U0003

== ENCOUNTER 2021-04-29 04:41 | Day surgery (SDC) | payer OTHER ==
[2021-04-26 19:38] VITALS: BMI 34.9
[2021-04-29] MEDS ORDERED: PROPOFOL 20 ML ONE (11:51)
[2021-04-29] MEDS ORDERED: MIDAZOLAM HCL 2 MG/2 ML SINGLE DOSE VIAL ONE (11:52)
[2021-04-29 13:43] VITALS: BP 131/76; PULSE 60; TEMP 97.8
== END 2021-04-29 14:00 | disposition home or self-care (01) ==
LOC: JASU-SURG 04:41
PROVIDERS: ATTEND Urology
PROC: 0TF3XZZ Fragmentation in Right Kidney Pelvis, External Approach (ICD-10-PCS; principal; 2021-04-29 11:30)
DX: N20.0 Calculus of kidney (principal)
CPT/HCPCS: 82962

== ENCOUNTER 2023-12-23 15:27 | Emergency (ER) | payer OTHER ==
[2023-12-23 15:48] VITALS: BP 139/86; PULSE 86; RESP 20; TEMP 99.6; BMI 33.6
[2023-12-23] MEDS ORDERED: FAMOTIDINE 20 MG/50 ML IVPB 20 MG/50 ML MG IVPB ONE (16:12)
[2023-12-23] MEDS ORDERED: ONDANSETRON 4 MG/2 ML VIAL ONE (16:12)
[2023-12-23] MEDS ORDERED: DEXAMETHASONE SOD PHOSPHATE 10 MG/1 ML VIAL ONE (16:13)
[2023-12-23] MEDS ORDERED: MAG HYDROX/AL HYDROX/SIMETH 30 ML UNIT-DOSE CUP ONE (16:13)
[2023-12-23] MEDS ORDERED: diphenhydrAMINE HCL 50 MG CAPSULE ONE (16:13)
[2023-12-23] MEDS: MAG HYDROX/AL HYDROX/SIMETH 30 ML UNIT-DOSE CUP PO ONE (16:25)
[2023-12-23] MEDS: LACTATED RINGERS SOLUTION 1000 ML INFUS.BAG IV ONE (16:25)
[2023-12-23] MEDS: FAMOTIDINE 20 MG/50 ML IVPB 20 MG/50 ML MG IVPB ONE (16:25)
[2023-12-23] MEDS: DEXAMETHASONE SOD PHOSPHATE 10 MG/1 ML VIAL IVPUSH ONE (16:26)
[2023-12-23] MEDS: ONDANSETRON 4 MG/2 ML VIAL IVPUSH ONE (16:26)
[2023-12-23] MEDS: diphenhydrAMINE HCL 25 MG CAPSULE (FP) PO ONE (16:26)
== END 2023-12-23 17:37 | disposition home or self-care (01) ==
LOC: FER 15:27
PROC: 3E033GC Introduction of Other Therapeutic Substance into Peripheral Vein, Percutaneous Approach (ICD-10-PCS; principal; 2023-12-23)
PROC: 3E033GC Introduction of Other Therapeutic Substance into Peripheral Vein, Percutaneous Approach (ICD-10-PCS; 2023-12-23)
PROC: 3E033GC Introduction of Other Therapeutic Substance into Peripheral Vein, Percutaneous Approach (ICD-10-PCS; 2023-12-23)
DX: R11.2 Nausea with vomiting, unspecified (principal); Z91.041 Radiographic dye allergy status
CPT/HCPCS: 99284-25; J1100

== ENCOUNTER 2024-03-24 03:34 | Emergency (ER) | payer OTHER ==
[2024-03-24 03:37] VITALS: RESP 18; BMI 34.9
[2024-03-24] MEDS ORDERED: ACETAMINOPHEN INJECTION 100 ML IVPB ONE (04:31)
[2024-03-24] MEDS ORDERED: ONDANSETRON 4 MG/2 ML VIAL ONE (04:39)
[2024-03-24] MEDS: ACETAMINOPHEN 1000 MG/100 ML BAG IVPB ONE (04:45)
[2024-03-24] MEDS: ONDANSETRON 4 MG/2 ML VIAL IVPUSH ONE (04:45)
[2024-03-24 05:29] LABS: BASO % 0.4 % (0-2.0); EOS % 0.9 % (0-4.5); HEMATOCRIT 43.7 % (35.4-49); HEMOGLOBIN 14.5 GM/dL (11.7-16.9); LYMPH % 22.3 % (8-40); MCH 30.7 pg (25.7-33.7); MCHC 33.1 g/dl (32.0-35.9); MEAN CELL VOLUME 92.7 fl (80-96); MEAN PLT VOLUME 8.6 fl (7.5-11.1); MONO % 5.2 % (3.8-10.2); NEUT % 71.2 % (42.8-82.8); PLATELET COUNT 222 10^3/uL (134-434); RBC 4.71 M/mm3 (4.00-5.60); RDW 14.4 % (11.9-15.9); WHITE BLOOD COUNT 10.9 K/mm3 (4.0-10.0)
[2024-03-24 05:31] LABS: INR 1.1 (0.83-1.09); PROTHROMBIN TIME (PATIENT) 12.4 SEC (9.7-13.0)
[2024-03-24 05:33] LABS: ACTIVATED PTT 28.3 SECONDS (25.2-36.5)
[2024-03-24 05:41] LABS: POTASSIUM 4.5 mmol/L (3.5-5.1)
[2024-03-24 05:42] LABS: CALCIUM 8.8 mg/dL (8.5-10.1)
[2024-03-24 05:43] LABS: ALBUMIN 3.5 g/dl (3.4-5.0)
[2024-03-24 05:46] LABS: CREATININE 0.9 mg/dL (0.55-1.3)
[2024-03-24 05:48] LABS: BILIRUBIN,TOTAL 0.3 mg/dL (0.2-1); TOT PROT 6.8 g/dl (6.4-8.2)
[2024-03-24 06:13] LABS: EPI CELLS 5 /uL (0-25.1); HYALINE CASTS 0 /uL (0-3.1); URINE APPEARANCE CLEAR; URINE BACTERIA 9 /uL (0-1359); URINE BILIRUBIN NEGATIVE (NEGATIVE); URINE COLOR YELLOW; URINE GLUCOSE (UA) NEGATIVE (NEGATIVE); URINE KETONE NEGATIVE (NEGATIVE); URINE LEUK ESTERASE TRACE (NEGATIVE); URINE NITRITE NEGATIVE (NEGATIVE); URINE PROTEIN NEGATIVE (NEGATIVE); URINE RBC 2420 /uL (0-23.9); URINE UROBILINOGEN 0.2 mg/dL (0.2-1.0); URINE WBC 21 /uL (0-25.8)
[2024-03-24 06:33] VITALS: BP 130/81; PULSE 72; TEMP 98
== END 2024-03-24 10:06 | disposition home or self-care (01) ==
LOC: JER 03:34
PROC: 3E033NZ Introduction of Analgesics, Hypnotics, Sedatives into Peripheral Vein, Percutaneous Approach (ICD-10-PCS; principal; 2024-03-24)
PROC: 3E033GC Introduction of Other Therapeutic Substance into Peripheral Vein, Percutaneous Approach (ICD-10-PCS; 2024-03-24)
DX: R10.30 Lower abdominal pain, unspecified (principal); R11.0 Nausea; N20.0 Calculus of kidney
CPT/HCPCS: 36415; 74176-TC; 80053; 81003; 85025; 85610; 85730; 87086; 99284-25; J0131